=== PATIENT | male | born 1995 | race Caucasian/White ===

== ENCOUNTER 2016-06-14 14:41 | Emergency (ER) | payer OTHER, SELFPAY ==
[2016-06-14 15:15] LABS: MEAN CORPUSCULAR HEMOGLOBIN 28.8 pg (27.0-33.0); MEAN CORPUSCULAR VOLUME 87.2 fl (80.0-96.0); RED CELL DISTRIBUTION WIDTH 12.8 % (11.5-14.5); WHITE BLOOD COUNT 7.2 K/mm3 (4.0-10.0)
[2016-06-14 15:56] LABS: ALBUMIN/GLOBULIN RATIO 1.14 (1.00-1.93); ALKALINE PHOSPHATASE 115 U/L (45-117); ALT/SGPT 43 U/L (12-78); ANION GAP 7 MEQ/L (8-16); AST/SGOT 32 U/L (15-37); BILIRUBIN,DIRECT < 0.1 MG/DL (0.0-0.2); BILIRUBIN,TOTAL 0.4 MG/DL (0.2-1.0); BLOOD UREA NITROGEN 12 MG/DL (7-18); CALCIUM LEVEL 8.6 MG/DL (8.5-10.1); CARBON DIOXIDE LEVEL 31 MEQ/L (21-32); CHLORIDE LEVEL 104 MEQ/L (98-107); GLUCOSE, FASTING 96 MG/DL (70-105); POTASSIUM SERUM 3.8 MEQ/L (3.5-5.1); SODIUM LEVEL 142 MEQ/L (136-145); TOTAL PROTEIN 7.5 GM/DL (6.4-8.2)
[2016-06-14 16:10] LABS: AMPHETAMINES LEVEL URINE NEGATIVE (NEGATIVE); BENZODIAZEPINES URINE NEGATIVE (NEGATIVE); COCAINE METABOLITE URINE NEGATIVE (NEGATIVE); CONTROL LINE INT CTR LINE PRESENT; METHADONE URINE NEGATIVE (NEGATIVE); OPIATES URINE NEGATIVE (NEGATIVE); TRICYCLIC ANTIDEPRESS URINE NEGATIVE (NEGATIVE)
--- NOTE | 2016-06-15 11:20 | EDDOCDS ---
Physician Documentation [facility] Name: Benjamin Denson Age: 20 yrs Sex: Male : 1995 Arrival Date: 06/14/2016 Time: 14:41 Bed OBSERVATION Private MD: NO PRIMARY PHYSICIAN, . Disposition: 06/15/16 04:15 Transfer ordered to [facility]. Diagnosis are Major depressive disorder, recurrent, Suicidal ideations. - Reason for transfer: Higher level of care. - Accepting physician is Dr Moody. - Condition is Stable. - Problem is an ongoing problem. - Symptoms are unchanged. Historical: - Allergies: no known allergies; - Home Meds: 1. none - PMHx: Anxiety; Bipolar disorder; Depression; MPD; - PSHx: Adenoidectomy; - Social history: Smoking status: Patient uses tobacco products, heavy tobacco smoker. No barriers to communication noted, The patient speaks fluent Upper Sor[place], Speaks appropriately for age. - Family history: Not pertinent. - : The pt / caregiver states he / she is not on anticoagulants. Home medication list is obtained from the patient. - Exposure Risk Screening:: None identified. Vital Signs: 06/14 14:43 BP 148 / 76; Pulse 89; Resp 18 S; Temp 96.4; Pulse Ox 99% on R/A; Weight 74.84 kg / dd6 164.99 lbs (R); 19:26 BP 132 / 60; Pulse 71; Resp 16; Temp 97.7(TE); Pulse Ox 96% ; Pain 0/10; mas 06/15 05:00 BP 109 / 53; Pulse 64; Resp 16; Temp 98.6(TE); Pulse Ox 96% on R/A; Pain 0/10; slm 11:19 BP 140 / 79; Pulse 62; Resp 18; Temp 99.2(T); Pulse Ox 100% on R/A; mk4 MDM: 06/14 14:49 Consult PFS/PSA/Combination Saw Operator ordered. br1 14:49 Consult PFS/PSA/Combination Saw Operator: Patient's case requires discussion with on-call br1 Psychiatrist ordered. 14:49 PSA/PFS to call Nursing Stone Polisher Hand, to enter patient data on [place] Safe Act if patient br1 involuntarily admitted or transferred for SI or HI ordered. 14:49 Confirm accurate psychiatric medication list and times of last dosage ordered. br1 14:49 Detain Pt Until Medically/PFS Cleared ordered. br1 14:50 Acetaminophen Level Ordered. EDMS 14:50 Basic Metabolic Profile Ordered. EDMS 14:50 Complete Blood Count Ordered. EDMS 14:50 Drug Eval Toxicology ED Only Ordered. EDMS 14:50 Ethyl Alcohol (ethanol) Ordered. EDMS 14:50 Liver Profile Ordered. EDMS 14:50 Salicylate Level Ordered. EDMS 14:50 Thyroid Stimulating Hormone Ordered. EDMS 15:11 Consult PFS/PSA/Combination Saw Operator complete. mk4 15:11 Consult PFS/PSA/Combination Saw Operator: Patient's case requires discussion with on-call mk4 Psychiatrist complete. 15:11 PSA/PFS to call Nursing Stone Polisher Hand, to enter patient data on [place] Safe Act if patient mk4 involuntarily admitted or transferred for SI or HI complete. 16:12 Acetaminophen Level Reviewed. br1 16:12 Basic Metabolic Profile Reviewed. br1 16:12 Salicylate Level Reviewed. br1 16:12 Complete Blood Count Reviewed. br1 16:12 Ethyl Alcohol (ethanol) Reviewed. br1 16:12 Liver Profile Reviewed. br1 16:12 Thyroid Stimulating Hormone Reviewed. br1 16:12 Drug Eval Toxicology ED Only Reviewed. br1 16:13 Consult PFS/PSA/Socail Worker: Cleared medically for eval ordered. br1 16:15 Consult PFS/PSA/Socail Worker: Cleared medically for eval complete. ml4 16:27 REGULAR DIET PLASTIC WEISS+DIET ordered. EDMS 17:13 [facility] Payment Agreement was scanned into [employer] and attached to record. [id number] 17:13 Financial registration complete. dm19 06/15 03:56 [facility] Legal paperwork was scanned into [employer] and attached to record. cl 04:24 REGULAR DIET PLASTIC WEISS+DIET ordered. EDMS 11:07 REGULAR DIET PLASTIC WEISS+DIET ordered. EDMS Signatures: Dispatcher [employer] EDMS Eric Albright, PSA PSA cl Chris Benitez RN RN mlb1 Juliane Orantes, PSA PSA ml4 Shad Valenzuela MD MD br1 Nate Kimble DO DO [id number] Samara Marquez RN RN mk4 Ariane Marion dm19 The chart was reviewed and I authenticate all verbal orders and agree with the evaluation and treatment provided.Attachments: 06/14 17:13 [facility] Payment Agreement [email or web address] MTDD
--- NOTE | 2016-06-15 11:20 | EDDOCDS ---
Nurse's Notes [facility] Name: Benjamin Denson Age: 20 yrs Sex: Male : 1995 Arrival Date: 06/14/2016 Time: 14:41 Bed OBSERVATION Private MD: NO PRIMARY PHYSICIAN, . Diagnosis: Major depressive disorder, recurrent;Suicidal ideations Presentation: 06/14 14:44 Presenting complaint: Patient states: Depression with suicidal thoughts. Mental Health mlb1 Triage Level: Level 2: The patient displays active suicidal ideations. Adult Sepsis Screening: The patient does not have new or worsening altered mentation. Patient's respiratory rate is less than 22. Systolic blood pressure is greater than 100. Patient has a qSOFA score of 0- Negative Sepsis Screen. Mental Health Triage Level: Level 2: The patient displays active suicidal ideations. Suicide/Homicide risk assessment- The patient admits to and/or has been reported to be having suicidal ideations. The patient reports that he/she has not been admitted to an inpatient mental health facility in the last 30 days. The patient reports that he/she has a recent or current history of substance abuse. The patient reports that he/she has a prior history of suicide attempt and/or organized plan. The patient reports that he/she has not experienced a significant life altering event in the last 30 days. The patient reports that he/she lacks adequate social support. The patient reports he/she has no significant chronic medical condition(s). Status: Patient is not a service desk lead or dependent. Transition of care: patient was not received from another setting of care. Red Flag criteria, patient assessed and taken directly to a bed. 14:44 Acuity: TEDDY Level 3 mlb1 14:44 Method Of Arrival: Walkin/Carried/Asstd mlb1 Triage Assessment: 14:45 General: Appears in no apparent distress, Behavior is cooperative, flat, quiet. Pain: mlb1 Denies pain. Pt Declines HIV testing. Historical: - Allergies: no known allergies; - Home Meds: 1. none - PMHx: Anxiety; Bipolar disorder; Depression; MPD; - PSHx: Adenoidectomy; - Social history: Smoking status: Patient uses tobacco products, heavy tobacco smoker. No barriers to communication noted, The patient speaks fluent Bengali, Speaks appropriately for age. - Family history: Not pertinent. - : The pt / caregiver states he / she is not on anticoagulants. Home medication list is obtained from the patient. - Exposure Risk Screening:: None identified. Screenin:13 Screening information is obtained from the patient. Fall risk: No risks identified. mk4 Assistance ADL's: requires no assistance with activities of daily living. Abuse/DV Screen: The patient / caregiver reports he/she is: not in a situation that causes fear, pain or injury. Nutritional screening: No deficits noted. Advance Directives: Currently, there is no health care proxy. There is no active DNR order. There is no living will. There is no Power of Power Plant Supervisor. Advance directive information has not previously been placed in an [facility] medical record. Further advance directive information is declined. home support is adequate. Assessment: 15:13 General: Appears in no apparent distress, comfortable, Behavior is flat, quiet. Pain: mk4 Denies pain. Neurological: Level of Consciousness is awake, alert. Respiratory: Airway is patent Respiratory effort is even, unlabored, Respiratory pattern is regular. Derm: Skin is intact, is healthy with good turgor, Skin is pink, warm & dry. 16:20 General: Appears in no apparent distress, comfortable. mk4 17:15 Reassessment: Patient appears in no apparent distress at this time. General: Appears in mk4 no apparent distress. Neurological: Level of Consciousness is awake, alert. 18:17 Reassessment: Patient appears in no apparent distress at this time. Patient denies pain mk4 at this time. General: Appears in no apparent distress, comfortable, Behavior is cooperative, flat, quiet, dinner tray given . 19:12 General: Appears in no apparent distress, comfortable, Behavior is appropriate for age, slm cooperative, quiet. General: pt resting on stretcher watching a movie security observing . Respiratory: Airway is patent Respiratory effort is even, unlabored. 20:16 General: Appears in no apparent distress, comfortable, Behavior is appropriate for age, slm cooperative. General: pt resting on stretcher watching a movie denies needs security observing . Respiratory: Airway is patent Respiratory effort is even, unlabored, Respiratory pattern is regular. Derm: Skin is pink, warm & dry. 21:12 General: Appears in no apparent distress, comfortable, Behavior is cooperative. slm General: resting on stretcher security observing . Respiratory: Airway is patent Respiratory pattern is regular. 22:20 General: Appears in no apparent distress, comfortable, to be sleeping. Behavior is slm quiet. General: resting on stretcher security observing . Respiratory: Airway is patent Respiratory effort is even, unlabored. Derm: Skin is pink, warm & dry. 23:01 General: Appears in no apparent distress, comfortable, to be sleeping. Behavior is slm quiet. General: security observing safety maintained . Respiratory: Airway is patent Respiratory effort is even, unlabored. Derm: Skin is pink, warm & dry. 06/15 00:10 General: Appears in no apparent distress, comfortable, to be sleeping. Behavior is slm quiet. General: security observing . Respiratory: Airway is patent Respiratory effort is even, unlabored. Derm: Skin is pink, warm & dry. 00:55 Reassessment: Patient appears in no apparent distress at this time. General: Appears in jp6 no apparent distress, comfortable. Respiratory: Airway is patent Respiratory effort is even, unlabored, Respiratory pattern is regular, symmetrical. :. Derm: Skin is pink, warm & dry. 01:34 General: Appears in no apparent distress, comfortable, Behavior is cooperative, quiet. slm General: pt resting on stretcher appears asleep security observing . Respiratory: No deficits noted. 02:16 General: Appears in no apparent distress, comfortable, to be sleeping. Behavior is slm quiet. General: security observing . Respiratory: Airway is patent Respiratory effort is even, unlabored, Respiratory pattern is regular. 02:57 General: Appears in no apparent distress, Pt asleep at rounds, no apparent distress, sls1 security observing, will continue to monitor.. Respiratory: Airway is patent Respiratory effort is even, unlabored, Respiratory pattern is regular, symmetrical. 03:43 General: Appears in no apparent distress, comfortable, to be sleeping. Behavior is slm quiet. General: security observing . Respiratory: Airway is patent Respiratory effort is even, unlabored. Derm: Skin is pink, warm & dry. 04:30 General: Appears in no apparent distress, comfortable, Behavior is appropriate for age, slm cooperative. General: pt resting on stretcher denies needs security observing . Pain: Denies pain. Neurological: Level of Consciousness is awake, alert, obeys commands. Respiratory: Airway is patent Respiratory effort is even, unlabored. Derm: Skin is pink, warm & dry. 05:06 General: Appears in no apparent distress, comfortable, to be sleeping. Behavior is slm cooperative, quiet. General: pt resting on stretcher security observing . Respiratory: Airway is patent Respiratory effort is even, unlabored. Derm: Skin is pink, warm & dry. 06:14 General: Appears in no apparent distress, comfortable, to be sleeping. Behavior is slm cooperative, quiet. General: resting on stretcher asleep security observing . Respiratory: Airway is patent Respiratory effort is even, unlabored. 06:40 Reassessment: Patient appears in no apparent distress at this time. General: Appears in jp6 no apparent distress, comfortable. Respiratory: Airway is patent Respiratory effort is even, unlabored, Respiratory pattern is regular, symmetrical. Derm: Skin is intact, Skin is pink, warm & dry. 07:08 General: Appears in no apparent distress, comfortable, Behavior is cooperative, slm pleasant. General: pt eating breakfast security observing . Respiratory: Airway is patent Respiratory effort is even, unlabored. 08:43 General: Appears in no apparent distress, comfortable, Behavior is cooperative, Denies mk4 feeling ill. 09:26 General: Appears in no apparent distress, comfortable. mk4 10:19 General: Appears in no apparent distress, comfortable, Behavior is cooperative, mk4 awaiting transfer to [place], denies any needs. 10:47 General: Appears in no apparent distress, comfortable, Behavior is cooperative, mk4 awaiting transfer to [place] denies needs. 11:18 General: Appears in no apparent distress, pt cooperative transferred to [place]. mk4 Mental Health Eval: 06/14 17:44 Mental health consult is initiated at 16:30. Status: The patient is not a service desk lead or dependent. [facility] Behavioral Health: The patient is not an established patient of [facility] Behavioral Health. Referral Information: Evaluation referral is generated by the patient himself / herself. The patient was referred for evaluation because Pt presented to ED by himself, homeless, suicidal with a plan to jump off [address] bridge, "because it is the highest one," or "slice his wrist," has been depressed and suicidal since he left [facility] in January 2016 after pt OD on trazodone and Zoloft (120 pills total), non compliant with treatment and medication, "don't work, make me feel like I am losing my mind," per pt. pt reports stressors are being homeless, family, father awhile back. Pt also reports not sleeping well for over 2 weeks, decompensating, disheveled, helpless and hopeless about his situation. 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 Subjective: The patients chief complaint is Pt reports depressed and +Suicidal with plan to jump off bridge or slice wrist, non-compliant with medications or treatment, homeless, family issues, . Delusions are denied. Patient's mood is anxious, depressed, hopeless, Hallucinations are denied. Mental Health history: anxiety, Bipolar Disorder, depression, sleep disturbance, suicide attempt by Pt reports 2 times tried to hang self, micah louise, OD on a combination of trazodone and Zoloft, 120 total on Jan 26 2016 Mental Health Admissions: [facility] 12/26/15, because pt requested a different hospital due to employment Current Outpatient Mental Health Services: None. Current living environment is homeless. Patient presents to Emergency Department with the following symptoms within the past 2 weeks: agitation, anxiety, denial, depressed mood, drug abuse, excessive guilt, feelings of helplessness/hopelessness, non-compliance, poor concentration, poor impulse control, relational problem, sleep disturbance - insomnia, suicidal ideation with plan for cutting. jumping off a structure. Substance abuse: Patient uses marijuana. Mental status exam: Patients appearance is disheveled Patient's behavior is cooperative, Speech is normal. Affect is broad. Mood is depressed. dysphoric. Hallucinations are denied. Appetite is normal. Memory is fair. Energy level is tires easily. Content of thought is normal. Thought process is intact. Cognitive level is oriented to person, place, time and situation Patient's insight is poor. Judgement is poor. Rapport with interviewer is good. Suicidal Ideation present with a plan to kill self by cutting. jumping off a structure. Homicidal ideation is not present. Disposition: Medically cleared for disposition by Shad Valenzuela MD Psychiatric Consult is performed by phone with Dr Roosevelt Del Rio The patient is to be transferred to [facility] unit is full at this time and pt is requesting a transfer due to being a recently x employed from [facility] [facility]. [facility] Admission Criteria: The patient is experiencing suicidal ideation. The patient requires continuous observation and/or control to protect self, others or property. The patient's care requires a multi-modal treatment plan under close supervision and coordination due to the complexity and severity of the patient's symptoms. The patient requires administration and monitoring of psychoactive medications by skilled medical providers due to the side effects of the psychoactive medications or significant dosage adjustments. Legal Status: Patient's legal status will be [facility] admission: 37. CT Safe Act: [place] Safe Act is applicable to this patient. The patient poses a risk to self or other and the Nursing Assembler Motor Vehicle has been notified. He/She will enter the patient's data. DSM-V Differential Diagnosis: Bipolar II Disorder (F31.81) Current or most recent episode depressed, severe. Insurance Pre-Certification: Not Required, Pt states he has no insurance at this time. Pt states preferred pharmacy is: [facility]. 23:12 Narrative: chart faxed to [facility] for review.... cl 06/15 04:40 Family Notification: Notification to family of patient status is not currently needed cl or appropriate. Awaiting: arrival of EMS for transfer. Vital Signs: 06/14 14:43 BP 148 / 76; Pulse 89; Resp 18 S; Temp 96.4; Pulse Ox 99% on R/A; Weight 74.84 kg (R); dd6 19:26 BP 132 / 60; Pulse 71; Resp 16; Temp 97.7(TE); Pulse Ox 96% ; Pain 0/10; mas 06/15 05:00 BP 109 / 53; Pulse 64; Resp 16; Temp 98.6(TE); Pulse Ox 96% on R/A; Pain 0/10; slm 11:19 BP 140 / 79; Pulse 62; Resp 18; Temp 99.2(T); Pulse Ox 100% on R/A; mk4 Vitals: 06/14 14:43 Log In Time: June 14, 2016 at 14:41. dd6 14:44 RN notified that patient meets Red Flag criteria. dd6 ED Course: 14:42 Patient visited by Ulises Mari PCA. dd6 14:42 Patient moved to Waiting dd6 14:43 NO PRIMARY PHYSICIAN, . is Private Physician. dd6 14:44 Patient moved to Pre RCE dd6 14:45 Triage Initiated mlb1 14:46 Patient visited by Chris Benitez RN. mlb1 14:46 Patient moved to [facility] mlb1 14:49 Shad Valenzuela MD is Attending Physician. br1 14:57 Patient visited by Lito Jain. gr2 15:11 Patient visited by Shad Valenzuela MD. br1 15:11 Acetaminophen Level Sent. mk4 15:11 Basic Metabolic Profile Sent. mk4 15:11 Complete Blood Count Sent. mk4 15:11 Ethyl Alcohol (ethanol) Sent. mk4 15:11 Liver Profile Sent. mk4 15:11 Salicylate Level Sent. mk4 15:11 Thyroid Stimulating Hormone Sent. mk4 15:13 Patient visited by Lito Jain. gr2 15:13 The patient / caregiver is instructed regarding the plan of care and ED course. mk4 15:13 No IV's were initiated during this patient's visit. No procedures done that require mk4 assistance. 15:30 Patient visited by Lito Jain. gr2 15:45 Patient visited by Lito Jain. gr2 16:08 Patient visited by Wojciech Ewing PCA. jrd 16:19 Patient visited by Wojciech Ewing PCA. jrd 16:31 Patient visited by Wojciech Ewing PCA. jrd 16:43 Patient visited by Lito Jain. gr2 17:09 Patient visited by Lito Jain. gr2 17:13 [facility] Payment Agreement was scanned into [employer] and attached to record. dm19 17:25 Patient visited by Lito Jain. gr2 17:52 Patient visited by Wojciech Ewing PCA. jrd 18:01 Patient visited by Wojciech Ewing PCA. jrd 18:16 Patient visited by Lito Jain. gr2 18:31 Patient visited by Lito Jain. gr2 18:45 Patient visited by Jeremy Woo. mas 18:46 Patient moved to OBSERVATION br1 19:00 Patient visited by Jeremy Woo. mas 19:03 Abril So LPN is Primary Nurse. slm 19:13 Patient visited by Abril So LPN. slm 19:15 Patient visited by Jeremy Woo. mas 19:31 Patient visited by Jeremy Woo. mas 19:45 Patient visited by Jeremy Woo. mas 20:00 Patient visited by Jeremy Woo. mas 20:15 Patient visited by Jeremy Woo. mas 20:17 Patient visited by Abril So LPN. slm 20:30 Patient visited by Jeremy Woo. mas 20:45 Patient visited by Jeremy Woo. mas 21:00 Patient visited by Jeremy Woo. mas 21:13 Patient visited by Abril So LPN. slm 21:15 Patient visited by Jeremy Woo. mas 21:31 Patient visited by Jeremy Woo. mas 21:48 Patient visited by Jeremy Woo. mas 22:00 Patient visited by Jeremy Woo. mas 22:15 Patient visited by Jeremy Woo. mas 22:30 Patient visited by Jeremy Woo. mas 22:42 Patient visited by Abril So LPN. slm 22:45 Patient visited by Jeremy Woo. mas 23:01 Patient visited by Jeremy Woo. mas 23:02 Patient visited by Abril So LPN. slm 23:07 Attending Physician role handed off by Shad Valenzuela MD cs11 23:07 Nate Kimble DO is Attending Physician. cs11 23:15 Patient visited by Jeremy Woo. mas 23:30 Patient visited by Jeremy Woo. mas 06/15 00:05 Patient visited by Jeremy Woo. mas 00:26 Patient visited by Jeremy Woo. mas 00:26 Patient visited by Abril So LPN. slm 00:30 Patient visited by Jeremy Woo. mas 00:45 Patient visited by Jeremy Woo. mas 01:01 Patient visited by Jeremy Woo. mas 01:16 Patient visited by Jeremy Woo. mas 01:30 Patient visited by Jeremy Woo. mas 01:34 Patient visited by Abril So LPN. slm 01:36 Patient visited by Abril So LPN. slm 01:45 Patient visited by Jeremy Woo. mas 02:00 Patient visited by Jeremy Woo. mas 02:15 Patient visited by Jeremy Woo. mas 02:16 Patient visited by Abril So LPN. slm 02:30 Patient visited by Jeremy Woo. mas 02:45 Patient visited by Jeremy Woo. mas 02:58 Patient visited by Jillian Joel RN. sls1 03:00 Patient visited by Jeremy Woo. mas 03:15 Patient visited by Jeremy Woo. mas 03:44 Patient visited by Abril So LPN. slm 03:56 [facility] Legal paperwork was scanned into [employer] and attached to record. cl 04:04 Patient visited by Jeremy Woo. mas 04:15 Patient visited by Abril So LPN. slm 04:30 Patient visited by Abril So LPN. slm 04:44 Patient visited by Jeremy Woo. mas 05:00 Patient visited by Jeremy Woo. mas 05:00 Patient visited by Abril So LPN. slm 05:07 Patient visited by Abril So LPN. slm 05:15 Patient visited by Jeremy Woo. mas 05:39 Patient visited by Jeremy Woo. mas 05:45 Patient visited by Jeremy Woo. mas 06:00 Patient visited by Jeremy Woo. mas 06:15 Patient visited by Jeremy Woo. mas 06:15 Patient visited by Abril So LPN. slm 06:30 Patient visited by Jeremy Woo. mas 06:45 Patient visited by Jeremy Woo. mas 07:05 Patient visited by Jeremy Woo. mas 07:09 Patient visited by Abril So LPN. slm 07:09 Primary Nurse role handed off by Abril So LPN mcp 07:22 Patient visited by Arnulfo Perez Security Aide. pjf 07:36 Patient visited by Arnulfo Perez Security Aide. pjf 07:44 Patient visited by Arnulfo Perez Security Aide. pjf 08:06 Patient visited by Arnulfo Perez Security Aide. pjf 08:29 Patient visited by Arnulfo Perez Security Aide. pjf 08:41 Patient visited by Arnulfo Perez Security Aide. pjf 09:00 Psych Safety Check: Location: Psych Room. Visual Assessment: Cooperative. pjf 09:15 Patient visited by Arnulfo Perez Security Aide. pjf 09:39 Patient visited by Arnulfo Perez Security Aide. pjf 10:01 Patient visited by Arnulfo Perez Security Aide. pjf 10:22 Patient visited by Arnulfo Peerz Security Aide. pjf 10:35 Patient visited by rAnulfo Perez Security Aide. pjf 10:54 Patient visited by Arnulfo Perez Security Aide. pjf 11:05 Patient visited by Arnulfo Perez Security Aide. pjf 11:17 Patient visited by Arnulfo Perez Security Aide. pjf Attachments: 06/15 03:56 MHE Legal paperwork cl Order Results: Lab Order: Acetaminophen Level; SPEC'M 06/14/16 15:08 Test: ACETAMINOPHEN LEVEL; Value: < 2.0; Range: 10.0-30.0; Abnormal: Below low normal; Units: UG/ML; Status: F Lab Order: Basic Metabolic Profile; SPEC'M 06/14/16 15:08 Test: GLUCOSE, FASTING; Value: 96; Range: 70-105; Units: MG/DL; Status: F Test: BLOOD UREA NITROGEN; Value: 12; Range: 7-18; Units: MG/DL; Status: F Test: CREATININE FOR GFR; Value: 0.90; Range: 0.70-1.30; Units: MG/DL; Status: F Test: SODIUM LEVEL; Value: 142; Range: 136-145; Units: MEQ/L; Status: F Test: POTASSIUM SERUM; Value: 3.8; Range: 3.5-5.1; Units: MEQ/L; Status: F Test: CHLORIDE LEVEL; Value: 104; Range: 98-107; Units: MEQ/L; Status: F Test: CARBON DIOXIDE LEVEL; Value: 31; Range: 21-32; Units: MEQ/L; Status: F Test: ANION GAP; Value: 7; Range: 8-16; Abnormal: Below low normal; Units: MEQ/L; Status: F Test: CALCIUM LEVEL; Value: 8.6; Range: 8.5-10.1; Units: MG/DL; Status: F Lab Order: Complete Blood Count; SPEC'M 06/14/16 15:08 Test: WHITE BLOOD COUNT; Value: 7.2; Range: 4.0-10.0; Units: K/mm3; Status: F Test: RED BLOOD COUNT; Value: 4.99; Range: 4.30-6.10; Units: M/mm3; Status: F Test: HEMOGLOBIN; Value: 14.4; Range: 14.0-18.0; Units: g/dl; Status: F Test: HEMATOCRIT; Value: 43.5; Range: 42.0-52.0; Units: %; Status: F Test: MEAN CORPUSCULAR VOLUME; Value: 87.2; Range: 80.0-96.0; Units: fl; Status: F Test: MEAN CORPUSCULAR HEMOGLOBIN; Value: 28.8; Range: 27.0-33.0; Units: pg; Status: F Test: MEAN CORPUSCULAR HGB CONC; Value: 33.0; Range: 32.0-36.5; Units: g/dl; Status: F Test: RED CELL DISTRIBUTION WIDTH; Value: 12.8; Range: 11.5-14.5; Units: %; Status: F Test: PLATELET COUNT, AUTOMATED; Value: 293; Range: 150-450; Units: k/mm3; Status: F Lab Order: Drug Eval Toxicology ED Only; SPEC'M 06/14/16 15:02 Test: AMPHETAMINES LEVEL URINE; Value: NEGATIVE; Range: NEGATIVE; Status: F Test: BARBITURATES URINE; Value: NEGATIVE; Range: NEGATIVE; Status: F Test: BENZODIAZEPINES URINE; Value: NEGATIVE; Range: NEGATIVE; Status: F Test: CANNABINOIDS URINE; Value: POSITIVE; Range: NEGATIVE; Abnormal: Above high normal; Status: F Test: COCAINE METABOLITE URINE; Value: NEGATIVE; Range: NEGATIVE; Status: F Test: METHADONE URINE; Value: NEGATIVE; Range: NEGATIVE; Status: F Test: OPIATES URINE; Value: NEGATIVE; Range: NEGATIVE; Status: F Test: TRICYCLIC ANTIDEPRESS URINE; Value: NEGATIVE; Range: NEGATIVE; Status: F Test Note: ; FALSE POSITIVE RESULTS CAN BE CAUSED BY THE USE OF PANTOPRAZOLE (PROTONIX). Lab Order: Ethyl Alcohol (ethanol); SPEC' 06/14/16 15:08 Test: ETHYL ALCOHOL (ETHANOL); Value: < 0.003; Range: 0.000-0.010; Units: %; Status: F Lab Order: Liver Profile; SPEC' 06/14/16 15:08 Test: AST/SGOT; Value: 32; Range: 15-37; Units: U/L; Status: F Test: ALT/SGPT; Value: 43; Range: 12-78; Units: U/L; Status: F Test: ALKALINE PHOSPHATASE; Value: 115; Range: 45-117; Units: U/L; Status: F Test: BILIRUBIN,TOTAL; Value: 0.4; Range: 0.2-1.0; Units: MG/DL; Status: F Test: BILIRUBIN,DIRECT; Value: < 0.1; Range: 0.0-0.2; Units: MG/DL; Status: F Test: TOTAL PROTEIN; Value: 7.5; Range: 6.4-8.2; Units: GM/DL; Status: F Test: ALBUMIN; Value: 4.0; Range: 3.2-5.2; Units: GM/DL; Status: F Test: ALBUMIN/GLOBULIN RATIO; Value: 1.14; Range: 1.00-1.93; Status: F Lab Order: Salicylate Level; SPEC' 06/14/16 15:08 Test: SALICYLATE LEVEL; Value: < 1.7; Range: 5.0-30.0; Abnormal: Below low normal; Units: MG/DL; Status: F Lab Order: Thyroid Stimulating Hormone; SPEC' 06/14/16 15:08 Test: THYROID STIMULATING HORMONE; Value: 2.600; Range: 0.463-3.98; Units: uIU/ML; Status: F Outcome: 02:17 No special radiology studies were completed. Property removed, inventory done, secured slm in belongings bag- placed in locked locker. 04:15 ER care complete, transfer ordered by Provider. cs11 10:47 Discharge Assessment: Patient awake, alert and oriented x 3. No cognitive and/or mk4 functional deficits noted. Patient verbalized understanding of disposition instructions. Patient awake and alert. patient administered narcotics - no. The following High Risk Discharge criteria are identified: None. Transferred to [facility]. by EMS ground [facility]. Condition: stable. 11:17 Transferred by EMS ground report to accompanying personnel john cespedes and freedom gruber . mk4 11:19 Patient left the ED. mk4 Signatures: Cami Hernandez, RN RN mcp Jose Ramon, Eric, PSA PSA cl Jeremy Sinha, PSA PSA cs Arnulfo Perez, Security Aide Chris Gavin RN RN mlb1 Shad Valenzuela MD MD br1 Ulises Mari, SOCIAL HUMAN SERVICES ASSISTANTS SOCIAL HUMAN SERVICES ASSISTANTS dd6 Jeremy Woo Shannon, RN RN sls1 Nate Kimble, DO cs11 Lito Jain gr2 Abril So,ENFORCEMENT OFFICER ENFORCEMENT OFFICER slm Samara Marquez, RN RN mk4 Wojciech Ewing, SOCIAL HUMAN SERVICES ASSISTANTS SOC[employer] HUMAN SERVICES ASSISTANTS d Nita TomRN RN jp6 Ariane Marion dm19 Corrections: (The following items were deleted from the chart) 01:36 01:34 General: pt resting on stretcher watching a movie security observing . slm slm MTDD
--- NOTE | 2016-06-17 12:20 | EDDOCDS ---
Physician Documentation [facility] Name: Benjamin Denson Age: 20 yrs Sex: Male : 1995 Arrival Date: 06/14/2016 Time: 14:41 Bed OBSERVATION Private MD: NO PRIMARY PHYSICIAN, . Disposition: 06/15/16 04:15 Transfer ordered to [facility]. Diagnosis are Major depressive disorder, recurrent, Suicidal ideations. - Reason for transfer: Higher level of care. - Accepting physician is Dr Moody. - Condition is Stable. - Problem is an ongoing problem. - Symptoms are unchanged. Historical: - Allergies: no known allergies; - Home Meds: 1. none - PMHx: Anxiety; Bipolar disorder; Depression; MPD; - PSHx: Adenoidectomy; - Social history: Smoking status: Patient uses tobacco products, heavy tobacco smoker. No barriers to communication noted, The patient speaks fluent Croatian, Speaks appropriately for age. - Family history: Not pertinent. - : The pt / caregiver states he / she is not on anticoagulants. Home medication list is obtained from the patient. - Exposure Risk Screening:: None identified. Vital Signs: 06/14 14:43 BP 148 / 76; Pulse 89; Resp 18 S; Temp 96.4; Pulse Ox 99% on R/A; Weight 74.84 kg / dd6 164.99 lbs (R); 19:26 BP 132 / 60; Pulse 71; Resp 16; Temp 97.7(TE); Pulse Ox 96% ; Pain 0/10; mas 06/15 05:00 BP 109 / 53; Pulse 64; Resp 16; Temp 98.6(TE); Pulse Ox 96% on R/A; Pain 0/10; slm 11:19 BP 140 / 79; Pulse 62; Resp 18; Temp 99.2(T); Pulse Ox 100% on R/A; mk4 MDM: 06/14 14:49 Consult PFS/PSA/Janitorial Manager ordered. br1 14:49 Consult PFS/PSA/Janitorial Manager: Patient's case requires discussion with on-call br1 Psychiatrist ordered. 14:49 PSA/PFS to call Nursing Credit Specialist, to enter patient data on [place] Safe Act if patient br1 involuntarily admitted or transferred for SI or HI ordered. 14:49 Confirm accurate psychiatric medication list and times of last dosage ordered. br1 14:49 Detain Pt Until Medically/PFS Cleared ordered. br1 14:50 Acetaminophen Level Ordered. EDMS 14:50 Basic Metabolic Profile Ordered. EDMS 14:50 Complete Blood Count Ordered. EDMS 14:50 Drug Eval Toxicology ED Only Ordered. EDMS 14:50 Ethyl Alcohol (ethanol) Ordered. EDMS 14:50 Liver Profile Ordered. EDMS 14:50 Salicylate Level Ordered. EDMS 14:50 Thyroid Stimulating Hormone Ordered. EDMS 15:11 Consult PFS/PSA/Janitorial Manager complete. mk4 15:11 Consult PFS/PSA/Janitorial Manager: Patient's case requires discussion with on-call mk4 Psychiatrist complete. 15:11 PSA/PFS to call Nursing Credit Specialist, to enter patient data on [place] Safe Act if patient mk4 involuntarily admitted or transferred for SI or HI complete. 16:12 Acetaminophen Level Reviewed. br1 16:12 Basic Metabolic Profile Reviewed. br1 16:12 Salicylate Level Reviewed. br1 16:12 Complete Blood Count Reviewed. br1 16:12 Ethyl Alcohol (ethanol) Reviewed. br1 16:12 Liver Profile Reviewed. br1 16:12 Thyroid Stimulating Hormone Reviewed. br1 16:12 Drug Eval Toxicology ED Only Reviewed. br1 16:13 Consult PFS/PSA/Socail Worker: Cleared medically for eval ordered. br1 16:15 Consult PFS/PSA/Socail Worker: Cleared medically for eval complete. ml4 16:27 REGULAR DIET PLASTIC WEISS+DIET ordered. EDMS 17:13 [facility] Payment Agreement was scanned into [employer] and attached to record. [id number] 17:13 Financial registration complete. dm19 06/15 03:56 [facility] Legal paperwork was scanned into [employer] and attached to record. cl 04:24 REGULAR DIET PLASTIC WEISS+DIET ordered. EDMS 11:07 REGULAR DIET PLASTIC WEISS+DIET ordered. EDMS 06/16 08:17 T-Sheet-- Draft Copy was scanned into [employer] and attached to record. gb Signatures: Dispatcher [employer] EDMS Eric Albright, PSA PSA cl Rochelle Gallardo, Reg Reg gb Chris Benitez RN RN mlb1 Juliane Orantes, PSA PSA ml4 Shad Valenzuela MD MD br1 Nate Kimble DO DO cs11 Samara Marquez RN RN mk4 Ariane Marion dm19 The chart was reviewed and I authenticate all verbal orders and agree with the evaluation and treatment provided.Attachments: 06/14 17:13 [facility] Payment Agreement [email or web address] 06/16 08:17 T-Sheet-- Draft Copy gb Chart Complete MTDD
--- NOTE | 2016-06-17 12:21 | EDDOCDS ---
Physician Documentation [facility] Name: Benjamin Denson Age: 20 yrs Sex: Male : 1995 Arrival Date: 06/14/2016 Time: 14:41 Bed OBSERVATION Private MD: NO PRIMARY PHYSICIAN, . Disposition: 06/15/16 04:15 Transfer ordered to [facility]. Diagnosis are Major depressive disorder, recurrent, Suicidal ideations. - Reason for transfer: Higher level of care. - Accepting physician is Dr Moody. - Condition is Stable. - Problem is an ongoing problem. - Symptoms are unchanged. Historical: - Allergies: no known allergies; - Home Meds: 1. none - PMHx: Anxiety; Bipolar disorder; Depression; MPD; - PSHx: Adenoidectomy; - Social history: Smoking status: Patient uses tobacco products, heavy tobacco smoker. No barriers to communication noted, The patient speaks fluent Armenian, Speaks appropriately for age. - Family history: Not pertinent. - : The pt / caregiver states he / she is not on anticoagulants. Home medication list is obtained from the patient. - Exposure Risk Screening:: None identified. Vital Signs: 06/14 14:43 BP 148 / 76; Pulse 89; Resp 18 S; Temp 96.4; Pulse Ox 99% on R/A; Weight 74.84 kg / dd6 164.99 lbs (R); 19:26 BP 132 / 60; Pulse 71; Resp 16; Temp 97.7(TE); Pulse Ox 96% ; Pain 0/10; mas 06/15 05:00 BP 109 / 53; Pulse 64; Resp 16; Temp 98.6(TE); Pulse Ox 96% on R/A; Pain 0/10; slm 11:19 BP 140 / 79; Pulse 62; Resp 18; Temp 99.2(T); Pulse Ox 100% on R/A; mk4 MDM: 06/14 14:49 Consult PFS/PSA/Drug Clerk ordered. br1 14:49 Consult PFS/PSA/Drug Clerk: Patient's case requires discussion with on-call br1 Psychiatrist ordered. 14:49 PSA/PFS to call Nursing Home Energy Inspector, to enter patient data [place] Safe [place] if patient br1 involuntarily admitted or transferred for SI or HI ordered. 14:49 Confirm accurate psychiatric medication list and times of last dosage ordered. br1 14:49 Detain Pt Until Medically/PFS Cleared ordered. br1 14:50 Acetaminophen Level Ordered. EDMS 14:50 Basic Metabolic Profile Ordered. EDMS 14:50 Complete Blood Count Ordered. EDMS 14:50 Drug Eval Toxicology ED Only Ordered. EDMS 14:50 Ethyl Alcohol (ethanol) Ordered. EDMS 14:50 Liver Profile Ordered. EDMS 14:50 Salicylate Level Ordered. EDMS 14:50 Thyroid Stimulating Hormone Ordered. EDMS 15:11 Consult PFS/PSA/Drug Clerk complete. mk4 15:11 Consult PFS/PSA/Drug Clerk: Patient's case requires discussion with on-call mk4 Psychiatrist complete. 15:11 PSA/PFS to call Nursing Home Energy Inspector, to enter patient data on [place] Safe Act if patient mk4 involuntarily admitted or transferred for SI or HI complete. 16:12 Acetaminophen Level Reviewed. br1 16:12 Basic Metabolic Profile Reviewed. br1 16:12 Salicylate Level Reviewed. br1 16:12 Complete Blood Count Reviewed. br1 16:12 Ethyl Alcohol (ethanol) Reviewed. br1 16:12 Liver Profile Reviewed. br1 16:12 Thyroid Stimulating Hormone Reviewed. br1 16:12 Drug Eval Toxicology ED Only Reviewed. br1 16:13 Consult PFS/PSA/Socail Worker: Cleared medically for eval ordered. br1 16:15 Consult PFS/PSA/Socail Worker: Cleared medically for eval complete. ml4 16:27 REGULAR DIET PLASTIC WEISS+DIET ordered. EDMS 17:13 [facility] Payment Agreement was scanned into [employer] and attached to record. [id number] 17:13 Financial registration complete. dm19 06/15 03:56 [facility] Legal paperwork was scanned into [employer] and attached to record. cl 04:24 REGULAR DIET PLASTIC WEISS+DIET ordered. EDMS 11:07 REGULAR DIET PLASTIC WEISS+DIET ordered. EDMS 06/16 08:17 T-Sheet-- Draft Copy was scanned into [employer] and attached to record. gb Signatures: Dispatcher [employer] EDMS Eric Albright, PSA PSA cl Rochelle Gallardo, Reg Reg gb Chris Benitez RN RN mlb1 Juliane Oarntes, PSA PSA ml4 Shad Valenzuela MD MD br1 Nate Kimble DO DO cs11 Samara Marquez RN RN mk4 Ariane Marion dm19 The chart was reviewed and I authenticate all verbal orders and agree with the evaluation and treatment provided.Attachments: 06/14 17:13 [facility] Payment Agreement [email or web address] 06/16 08:17 T-Sheet-- Draft Copy gb Chart Complete MTDD
--- NOTE | 2016-06-17 12:21 | EDDOCDS ---
Nurse's Notes [facility] Name: Benjamin Denson Age: 20 yrs Sex: Male : 1995 Arrival Date: 06/14/2016 Time: 14:41 Bed OBSERVATION Private MD: NO PRIMARY PHYSICIAN, . Diagnosis: Major depressive disorder, recurrent;Suicidal ideations Presentation: 06/14 14:44 Presenting complaint: Patient states: Depression with suicidal thoughts. Mental Health mlb1 Triage Level: Level 2: The patient displays active suicidal ideations. Adult Sepsis Screening: The patient does not have new or worsening altered mentation. Patient's respiratory rate is less than 22. Systolic blood pressure is greater than 100. Patient has a qSOFA score of 0- Negative Sepsis Screen. Mental Health Triage Level: Level 2: The patient displays active suicidal ideations. Suicide/Homicide risk assessment- The patient admits to and/or has been reported to be having suicidal ideations. The patient reports that he/she has not been admitted to an inpatient mental health facility in the last 30 days. The patient reports that he/she has a recent or current history of substance abuse. The patient reports that he/she has a prior history of suicide attempt and/or organized plan. The patient reports that he/she has not experienced a significant life altering event in the last 30 days. The patient reports that he/she lacks adequate social support. The patient reports he/she has no significant chronic medical condition(s). Status: Patient is not a real estate services administrator or dependent. Transition of care: patient was not received from another setting of care. Red Flag criteria, patient assessed and taken directly to a bed. 14:44 Acuity: TEDDY Level 3 mlb1 14:44 Method Of Arrival: Walkin/Carried/Asstd mlb1 Triage Assessment: 14:45 General: Appears in no apparent distress, Behavior is cooperative, flat, quiet. Pain: mlb1 Denies pain. Pt Declines HIV testing. Historical: - Allergies: no known allergies; - Home Meds: 1. none - PMHx: Anxiety; Bipolar disorder; Depression; MPD; - PSHx: Adenoidectomy; - Social history: Smoking status: Patient uses tobacco products, heavy tobacco smoker. No barriers to communication noted, The patient speaks fluent Slovenian, Speaks appropriately for age. - Family history: Not pertinent. - : The pt / caregiver states he / she is not on anticoagulants. Home medication list is obtained from the patient. - Exposure Risk Screening:: None identified. Screenin:13 Screening information is obtained from the patient. Fall risk: No risks identified. mk4 Assistance ADL's: requires no assistance with activities of daily living. Abuse/DV Screen: The patient / caregiver reports he/she is: not in a situation that causes fear, pain or injury. Nutritional screening: No deficits noted. Advance Directives: Currently, there is no health care proxy. There is no active DNR order. There is no living will. There is no Power of Panel Machine Operator. Advance directive information has not previously been placed in an [facility] medical record. Further advance directive information is declined. home support is adequate. Assessment: 15:13 General: Appears in no apparent distress, comfortable, Behavior is flat, quiet. Pain: mk4 Denies pain. Neurological: Level of Consciousness is awake, alert. Respiratory: Airway is patent Respiratory effort is even, unlabored, Respiratory pattern is regular. Derm: Skin is intact, is healthy with good turgor, Skin is pink, warm & dry. 16:20 General: Appears in no apparent distress, comfortable. mk4 17:15 Reassessment: Patient appears in no apparent distress at this time. General: Appears in mk4 no apparent distress. Neurological: Level of Consciousness is awake, alert. 18:17 Reassessment: Patient appears in no apparent distress at this time. Patient denies pain mk4 at this time. General: Appears in no apparent distress, comfortable, Behavior is cooperative, flat, quiet, dinner tray given . 19:12 General: Appears in no apparent distress, comfortable, Behavior is appropriate for age, slm cooperative, quiet. General: pt resting on stretcher watching a movie security observing . Respiratory: Airway is patent Respiratory effort is even, unlabored. 20:16 General: Appears in no apparent distress, comfortable, Behavior is appropriate for age, slm cooperative. General: pt resting on stretcher watching a movie denies needs security observing . Respiratory: Airway is patent Respiratory effort is even, unlabored, Respiratory pattern is regular. Derm: Skin is pink, warm & dry. 21:12 General: Appears in no apparent distress, comfortable, Behavior is cooperative. slm General: resting on stretcher security observing . Respiratory: Airway is patent Respiratory pattern is regular. 22:20 General: Appears in no apparent distress, comfortable, to be sleeping. Behavior is slm quiet. General: resting on stretcher security observing . Respiratory: Airway is patent Respiratory effort is even, unlabored. Derm: Skin is pink, warm & dry. 23:01 General: Appears in no apparent distress, comfortable, to be sleeping. Behavior is slm quiet. General: security observing safety maintained . Respiratory: Airway is patent Respiratory effort is even, unlabored. Derm: Skin is pink, warm & dry. 06/15 00:10 General: Appears in no apparent distress, comfortable, to be sleeping. Behavior is slm quiet. General: security observing . Respiratory: Airway is patent Respiratory effort is even, unlabored. Derm: Skin is pink, warm & dry. 00:55 Reassessment: Patient appears in no apparent distress at this time. General: Appears in jp6 no apparent distress, comfortable. Respiratory: Airway is patent Respiratory effort is even, unlabored, Respiratory pattern is regular, symmetrical. :. Derm: Skin is pink, warm & dry. 01:34 General: Appears in no apparent distress, comfortable, Behavior is cooperative, quiet. slm General: pt resting on stretcher appears asleep security observing . Respiratory: No deficits noted. 02:16 General: Appears in no apparent distress, comfortable, to be sleeping. Behavior is slm quiet. General: security observing . Respiratory: Airway is patent Respiratory effort is even, unlabored, Respiratory pattern is regular. 02:57 General: Appears in no apparent distress, Pt asleep at rounds, no apparent distress, sls1 security observing, will continue to monitor.. Respiratory: Airway is patent Respiratory effort is even, unlabored, Respiratory pattern is regular, symmetrical. 03:43 General: Appears in no apparent distress, comfortable, to be sleeping. Behavior is slm quiet. General: security observing . Respiratory: Airway is patent Respiratory effort is even, unlabored. Derm: Skin is pink, warm & dry. 04:30 General: Appears in no apparent distress, comfortable, Behavior is appropriate for age, slm cooperative. General: pt resting on stretcher denies needs security observing . Pain: Denies pain. Neurological: Level of Consciousness is awake, alert, obeys commands. Respiratory: Airway is patent Respiratory effort is even, unlabored. Derm: Skin is pink, warm & dry. 05:06 General: Appears in no apparent distress, comfortable, to be sleeping. Behavior is slm cooperative, quiet. General: pt resting on stretcher security observing . Respiratory: Airway is patent Respiratory effort is even, unlabored. Derm: Skin is pink, warm & dry. 06:14 General: Appears in no apparent distress, comfortable, to be sleeping. Behavior is slm cooperative, quiet. General: resting on stretcher asleep security observing . Respiratory: Airway is patent Respiratory effort is even, unlabored. 06:40 Reassessment: Patient appears in no apparent distress at this time. General: Appears in jp6 no apparent distress, comfortable. Respiratory: Airway is patent Respiratory effort is even, unlabored, Respiratory pattern is regular, symmetrical. Derm: Skin is intact, Skin is pink, warm & dry. 07:08 General: Appears in no apparent distress, comfortable, Behavior is cooperative, slm pleasant. General: pt eating breakfast security observing . Respiratory: Airway is patent Respiratory effort is even, unlabored. 08:43 General: Appears in no apparent distress, comfortable, Behavior is cooperative, Denies mk4 feeling ill. 09:26 General: Appears in no apparent distress, comfortable. mk4 10:19 General: Appears in no apparent distress, comfortable, Behavior is cooperative, mk4 awaiting transfer to [place], denies any needs. 10:47 General: Appears in no apparent distress, comfortable, Behavior is cooperative, mk4 awaiting transfer to [place] denies needs. 11:18 General: Appears in no apparent distress, pt cooperative transferred to [place]. mk4 Mental Health Eval: 06/14 17:44 Mental health consult is initiated at 16:30. Status: The patient is not a real estate services administrator or dependent. [facility] Behavioral Health: The patient is not an established patient of [facility] Behavioral Health. Referral Information: Evaluation referral is generated by the patient himself / herself. The patient was referred for evaluation because Pt presented to ED by himself, homeless, suicidal with a plan to jump off [address] bridge, "because it is the highest one," or "slice his wrist," has been depressed and suicidal since he left [facility] in January 2016 after pt OD on trazodone and Zoloft (120 pills total), non compliant with treatment and medication, "don't work, make me feel like I am losing my mind," per pt. pt reports stressors are being homeless, family, father awhile back. Pt also reports not sleeping well for over 2 weeks, decompensating, disheveled, helpless and hopeless about his situation. 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 Subjective: The patients chief complaint is Pt reports depressed and +Suicidal with plan to jump off bridge or slice wrist, non-compliant with medications or treatment, homeless, family issues, . Delusions are denied. Patient's mood is anxious, depressed, hopeless, Hallucinations are denied. Mental Health history: anxiety, Bipolar Disorder, depression, sleep disturbance, suicide attempt by Pt reports 2 times tried to hang self, micah louise, OD on a combination of trazodone and Zoloft, 120 total on Jan 26 2016 Mental Health Admissions: [facility] 12/26/15, because pt requested a different hospital due to employment Current Outpatient Mental Health Services: None. Current living environment is homeless. Patient presents to Emergency Department with the following symptoms within the past 2 weeks: agitation, anxiety, denial, depressed mood, drug abuse, excessive guilt, feelings of helplessness/hopelessness, non-compliance, poor concentration, poor impulse control, relational problem, sleep disturbance - insomnia, suicidal ideation with plan for cutting. jumping off a structure. Substance abuse: Patient uses marijuana. Mental status exam: Patients appearance is disheveled Patient's behavior is cooperative, Speech is normal. Affect is broad. Mood is depressed. dysphoric. Hallucinations are denied. Appetite is normal. Memory is fair. Energy level is tires easily. Content of thought is normal. Thought process is intact. Cognitive level is oriented to person, place, time and situation Patient's insight is poor. Judgement is poor. Rapport with interviewer is good. Suicidal Ideation present with a plan to kill self by cutting. jumping off a structure. Homicidal ideation is not present. Disposition: Medically cleared for disposition by Shad Valenzuela MD Psychiatric Consult is performed by phone with Dr Roosevelt Del Rio The patient is to be transferred to [facility] unit is full at this time and pt is requesting a transfer due to being a recently x employed from [facility]. [facility] Admission Criteria: The patient is experiencing suicidal ideation. The patient requires continuous observation and/or control to protect self, others or property. The patient's care requires a multi-modal treatment plan under close supervision and coordination due to the complexity and severity of the patient's symptoms. The patient requires administration and monitoring of psychoactive medications by skilled medical providers due to the side effects of the psychoactive medications or significant dosage adjustments. Legal Status: Patient's legal status will be [facility] admission: 37. [place] Safe Act: [place] Safe Act is applicable to this patient. The patient poses a risk to self or other and the Nursing Butt Trimmer has been notified. He/She will enter the patient's data. DSM-V Differential Diagnosis: Bipolar II Disorder (F31.81) Current or most recent episode depressed, severe. Insurance Pre-Certification: Not Required, Pt states he has no insurance at this time. Pt [place] [facility] [place] Narrative: chart faxed to [facility] for review.... cl 06/15 04:40 Family Notification: Notification to family of patient status is not currently needed cl or appropriate. Awaiting: arrival of EMS for transfer. Vital Signs: 06/14 14:43 BP 148 / 76; Pulse 89; Resp 18 S; Temp 96.4; Pulse Ox 99% on R/A; Weight 74.84 kg (R); dd6 19:26 BP 132 / 60; Pulse 71; Resp 16; Temp 97.7(TE); Pulse Ox 96% ; Pain 0/10; mas 06/15 05:00 BP 109 / 53; Pulse 64; Resp 16; Temp 98.6(TE); Pulse Ox 96% on R/A; Pain 0/10; slm 11:19 BP 140 / 79; Pulse 62; Resp 18; Temp 99.2(T); Pulse Ox 100% on R/A; mk4 Vitals: 06/14 14:43 Log In Time: June 14, 2016 at 14:41. dd6 14:44 RN notified that patient meets Red Flag criteria. dd6 ED Course: 14:42 Patient visited by Ulises Mari PCA. dd6 14:42 Patient moved to Waiting dd6 14:43 NO PRIMARY PHYSICIAN, . is Private Physician. dd6 14:44 Patient moved to Pre RCE dd6 14:45 Triage Initiated mlb1 14:46 Patient visited by Chris Benitez RN. mlb1 14:46 [facility] 14:49 Shad Valenzuela MD is Attending Physician. br1 14:57 Patient visited by Lito Jain. gr2 15:11 Patient visited by Shad Valenzuela MD. br1 15:11 Acetaminophen Level Sent. mk4 15:11 Basic Metabolic Profile Sent. mk4 15:11 Complete Blood Count Sent. mk4 15:11 Ethyl Alcohol (ethanol) Sent. mk4 15:11 Liver Profile Sent. mk4 15:11 Salicylate Level Sent. mk4 15:11 Thyroid Stimulating Hormone Sent. mk4 15:13 Patient visited by Lito Jain. gr2 15:13 The patient / caregiver is instructed regarding the plan of care and ED course. mk4 15:13 No IV's were initiated during this patient's visit. No procedures done that require mk4 assistance. 15:30 Patient visited by Lito Jain. gr2 15:45 Patient visited by Lito Jain. gr2 16:08 Patient visited by Wojciech Ewing PCA. jrd 16:19 Patient visited by Wojciech Ewing PCA. jrd 16:31 Patient visited by Wojciech Ewing PCA. jrd 16:43 Patient visited by Lito Jain. gr2 17:09 Patient visited by Lito Jain. gr2 17:13 [facility] [place] Agreement was scanned into [employer] and attached to record. dm19 17:25 Patient visited by Lito Jain. gr2 17:52 Patient visited by Wojciech Ewing PCA. jrd 18:01 Patient visited by Wojciech Ewing PCA. jrd 18:16 Patient visited by Lito Jain. gr2 18:31 Patient visited by Lito Jain. gr2 18:45 Patient visited by Jeremy Woo. mas 18:46 Patient moved to OBSERVATION br1 19:00 Patient visited by Jeremy Woo. mas 19:03 Abril So LPN is Primary Nurse. slm 19:13 Patient visited by Abril So LPN. slm 19:15 Patient visited by Jeremy Woo. mas 19:31 Patient visited by Jeremy Woo. mas 19:45 Patient visited by Jeremy Woo. mas 20:00 Patient visited by Jeremy Woo. mas 20:15 Patient visited by Jeremy Woo. mas 20:17 Patient visited by Abril So LPN. slm 20:30 Patient visited by Jeremy Woo. mas 20:45 Patient visited by Jeremy Woo. mas 21:00 Patient visited by Jeremy Woo. mas 21:13 Patient visited by Abril So LPN. slm 21:15 Patient visited by Jeremy Woo. mas 21:31 Patient visited by Jeremy Woo. mas 21:48 Patient visited by Jeremy Woo. mas 22:00 Patient visited by Jeremy Woo. mas 22:15 Patient visited by Jeremy Woo. mas 22:30 Patient visited by Jeremy Woo. mas 22:42 Patient visited by Abril So LPN. slm 22:45 Patient visited by Jeremy Woo. mas 23:01 Patient visited by Jeremy Woo. mas 23:02 Patient visited by Abril So LPN. slm 23:07 Attending Physician role handed off by Shad Valenzuela MD cs11 23:07 Nate Kimble DO is Attending Physician. cs11 23:15 Patient visited by Jeremy Woo. mas 23:30 Patient visited by Jeremy Woo. mas 06/15 00:05 Patient visited by Jeremy Woo. mas 00:26 Patient visited by Jeremy Woo. mas 00:26 Patient visited by Abril So LPN. slm 00:30 Patient visited by Jeremy Woo. mas 00:45 Patient visited by Jeremy Woo. mas 01:01 Patient visited by Jeremy Woo. mas 01:16 Patient visited by Jeremy Woo. mas 01:30 Patient visited by Jeremy Woo. mas 01:34 Patient visited by Abril So LPN. slm 01:36 Patient visited by Abril So LPN. slm 01:45 Patient visited by Jeremy Woo. mas 02:00 Patient visited by Jeremy Woo. mas 02:15 Patient visited by Jeremy Woo. mas 02:16 Patient visited by Abril So LPN. slm 02:30 Patient visited by Jeremy Woo. mas 02:45 Patient visited by Jeremy Woo. mas 02:58 Patient visited by Jillian Joel RN. sls1 03:00 Patient visited by Jeremy Woo. mas 03:15 Patient visited by Jeremy Woo. mas 03:44 Patient visited by Abril So LPN. slm 03:56 [facility] Legal paperwork was scanned into [employer] and attached to record. cl 04:04 Patient visited by Jeremy Woo. mas 04:15 Patient visited by Abril So LPN. slm 04:30 Patient visited by Abril So LPN. slm 04:44 Patient visited by Jeremy Woo. mas 05:00 Patient visited by Jeremy Woo. mas 05:00 Patient visited by Abril So LPN. slm 05:07 Patient visited by Abril So LPN. slm 05:15 Patient visited by Jeremy Woo. mas 05:39 Patient visited by Jeremy Woo. mas 05:45 Patient visited by Jeremy Woo. mas 06:00 Patient visited by Jeremy Woo. mas 06:15 Patient visited by Jeremy Woo. mas 06:15 Patient visited by Abril So LPN. slm 06:30 Patient visited by Jeremy Woo. mas 06:45 Patient visited by Jeremy Woo. mas 07:05 Patient visited by Jeremy Woo. mas 07:09 Patient visited by Abril So LPN. slm 07:09 Primary Nurse role handed off by Abril So LPN mcp 07:22 Patient visited by Arnulfo Perez Security Aide. pjf 07:36 Patient visited by Arnulfo Perez Security Aide. pjf 07:44 Patient visited by Arnulfo Perez Security Aide. pjf 08:06 Patient visited by Arnulfo Perez Security Aide. pjf 08:29 Patient visited by Arunlfo Perez Security Aide. pjf 08:41 Patient visited by Arnulfo Perez Security Aide. pjf 09:00 Psych Safety Check: Location: Psych Room. Visual Assessment: Cooperative. pjf 09:15 Patient visited by Arnulfo Perez Security Aide. pjf 09:39 Patient visited by Arnulfo Perez Security Aide. pjf 10:01 Patient visited by Arnulfo Perez Security Aide. pjf 10:22 Patient visited by Arnulfo Perez Security Aide. pjf 10:35 Patient visited by Arnulfo Perez Security Aide. pjf 10:54 Patient visited by Arnulfo Perez Security Aide. pjf 11:05 Patient visited by Arnulfo Perez Security Aide. pjf 11:17 Patient visited by Arnulfo Perez Security Aide. pjf 06/16 08:17 T-Sheet-- Draft Copy was scanned into [employer] and attached to record. gb Attachments: 06/15 03:56 [facility] Legal paperwork cl Order Results: Lab Order: Acetaminophen Level; SPEC'M 06/14/16 15:08 Test: ACETAMINOPHEN LEVEL; Value: < 2.0; Range: 10.0-30.0; Abnormal: Below low normal; Units: UG/ML; Status: F Lab Order: Basic Metabolic Profile; SPEC'M 06/14/16 15:08 Test: GLUCOSE, FASTING; Value: 96; Range: 70-105; Units: MG/DL; Status: F Test: BLOOD UREA NITROGEN; Value: 12; Range: 7-18; Units: MG/DL; Status: F Test: CREATININE FOR GFR; Value: 0.90; Range: 0.70-1.30; Units: MG/DL; Status: F Test: SODIUM LEVEL; Value: 142; Range: 136-145; Units: MEQ/L; Status: F Test: POTASSIUM SERUM; Value: 3.8; Range: 3.5-5.1; Units: MEQ/L; Status: F Test: CHLORIDE LEVEL; Value: 104; Range: 98-107; Units: MEQ/L; Status: F Test: CARBON DIOXIDE LEVEL; Value: 31; Range: 21-32; Units: MEQ/L; Status: F Test: ANION GAP; Value: 7; Range: 8-16; Abnormal: Below low normal; Units: MEQ/L; Status: F Test: CALCIUM LEVEL; Value: 8.6; Range: 8.5-10.1; Units: MG/DL; Status: F Lab Order: Complete Blood Count; SPEC'M 06/14/16 15:08 Test: WHITE BLOOD COUNT; Value: 7.2; Range: 4.0-10.0; Units: K/mm3; Status: F Test: RED BLOOD COUNT; Value: 4.99; Range: 4.30-6.10; Units: M/mm3; Status: F Test: HEMOGLOBIN; Value: 14.4; Range: 14.0-18.0; Units: g/dl; Status: F Test: HEMATOCRIT; Value: 43.5; Range: 42.0-52.0; Units: %; Status: F Test: MEAN CORPUSCULAR VOLUME; Value: 87.2; Range: 80.0-96.0; Units: fl; Status: F Test: MEAN CORPUSCULAR HEMOGLOBIN; Value: 28.8; Range: 27.0-33.0; Units: pg; Status: F Test: MEAN CORPUSCULAR HGB CONC; Value: 33.0; Range: 32.0-36.5; Units: g/dl; Status: F Test: RED CELL DISTRIBUTION WIDTH; Value: 12.8; Range: 11.5-14.5; Units: %; Status: F Test: PLATELET COUNT, AUTOMATED; Value: 293; Range: 150-450; Units: k/mm3; Status: F Lab Order: Drug Eval Toxicology ED Only; SPEC'M 06/14/16 15:02 Test: AMPHETAMINES LEVEL URINE; Value: NEGATIVE; Range: NEGATIVE; Status: F Test: BARBITURATES URINE; Value: NEGATIVE; Range: NEGATIVE; Status: F Test: BENZODIAZEPINES URINE; Value: NEGATIVE; Range: NEGATIVE; Status: F Test: CANNABINOIDS URINE; Value: POSITIVE; Range: NEGATIVE; Abnormal: Above high normal; Status: F Test: COCAINE METABOLITE URINE; Value: NEGATIVE; Range: NEGATIVE; Status: F Test: METHADONE URINE; Value: NEGATIVE; Range: NEGATIVE; Status: F Test: OPIATES URINE; Value: NEGATIVE; Range: NEGATIVE; Status: F Test: TRICYCLIC ANTIDEPRESS URINE; Value: NEGATIVE; Range: NEGATIVE; Status: F Test Note: ; FALSE POSITIVE RESULTS CAN BE CAUSED BY THE USE OF PANTOPRAZOLE (PROTONIX). Lab Order: Ethyl Alcohol (ethanol); SPEC'M 06/14/16 15:08 Test: ETHYL ALCOHOL (ETHANOL); Value: < 0.003; Range: 0.000-0.010; Units: %; Status: F Lab Order: Liver Profile; SPEC' 06/14/16 15:08 Test: AST/SGOT; Value: 32; Range: 15-37; Units: U/L; Status: F Test: ALT/SGPT; Value: 43; Range: 12-78; Units: U/L; Status: F Test: ALKALINE PHOSPHATASE; Value: 115; Range: 45-117; Units: U/L; Status: F Test: BILIRUBIN,TOTAL; Value: 0.4; Range: 0.2-1.0; Units: MG/DL; Status: F Test: BILIRUBIN,DIRECT; Value: < 0.1; Range: 0.0-0.2; Units: MG/DL; Status: F Test: TOTAL PROTEIN; Value: 7.5; Range: 6.4-8.2; Units: GM/DL; Status: F Test: ALBUMIN; Value: 4.0; Range: 3.2-5.2; Units: GM/DL; Status: F Test: ALBUMIN/GLOBULIN RATIO; Value: 1.14; Range: 1.00-1.93; Status: F Lab Order: Salicylate Level; SPEC'M 06/14/16 15:08 Test: SALICYLATE LEVEL; Value: < 1.7; Range: 5.0-30.0; Abnormal: Below low normal; Units: MG/DL; Status: F Lab Order: Thyroid Stimulating Hormone; SPEC'M 06/14/16 15:08 Test: THYROID STIMULATING HORMONE; Value: 2.600; Range: 0.463-3.98; Units: uIU/ML; Status: F Outcome: 06/15 02:17 No special radiology studies were completed. Property removed, inventory done, secured slm in belongings bag- placed in locked locker. 04:15 ER care complete, transfer ordered by Provider. cs11 10:47 Discharge Assessment: Patient awake, alert and oriented x 3. No cognitive and/or mk4 functional deficits noted. Patient verbalized understanding of disposition instructions. Patient awake and alert. patient administered narcotics - no. The following High Risk Discharge criteria are identified: None. [facility]. Condition: stable. 11:17 Transferred by EMS ground report to accompanying personnel john cespedes and freedom gruber . mk4 11:19 Patient left the ED. mk4 Signatures: Cami Hernandez, RN RN Eric Adams, PSA PSA cl Jeremy Sinha, PSA PSA cs BarRochelle ball, Reg Reg gb Ana, Arnulfo, Security Aide Chris Gavin RN RN mlb1 Shad Valenzuela MD MD br1 Ulises Mari, INSTRUCTOR PILOT INSTRUCTOR PILOT dd6 Jeremy Woo Shannon, RN RN sls1 Nate Kimble, DO cs11 Lito Jain gr2 Abril So,OWNER OWNER slm Samara Marquez RN RN mk4 Wojciech Ewing, INSTRUCTOR PILOT INSTRUCTOR PILOT Nita Trujillo,RN RN jp6 Ariane Marion dm19 Corrections: (The following items were deleted from the chart) 01:36 01:34 General: pt resting on stretcher watching a movie security observing . slm slm Chart Complete MTDD
== END 2016-06-15 11:19 ==
LOC: M ED 14:41
DX: F32.9 Major depressive disorder, single episode, unspecified (principal); R45.851 Suicidal ideations; F41.9 Anxiety disorder, unspecified; F17.210 Nicotine dependence, cigarettes, uncomplicated
CPT/HCPCS: 36415; 80048; 80076; 80306; 84443; 85027; 99285; G0480

== ENCOUNTER 2016-07-15 00:27 | Emergency (ER) | payer OTHER ==
--- NOTE | 2016-07-15 02:51 | EDDOCDS ---
Nurse's Notes [facility] Name: Benjamin Denson Age: 20 yrs Sex: Male : 1995 Arrival Date: 07/15/2016 Time: 00:27 Bed [facility] Private MD: Diagnosis: Problems related to social environment;Inadequate social skills, not elsewhere classified Presentation: 07/15 00:29 Presenting complaint: [facility] Deputy Peg stated that he was called mgs to the patients residence by the patients family. Upon arrival the officer was informed by the patients mother that the patient had taken a kitchen knife and threatened to kill himself. According to mother the patient has not been taking his medications and got into an argument with his brother today. Officer Peg stated that according to the patient he was upset because his mother was making comments about the patients father. Mental Health Triage Level: Level 2: The patient displays active suicidal ideations. Mental Health Triage Level: Level 2:. Suicide/Homicide risk assessment- the patient denies having any suicidal and/or homicidal ideations and does not present with any other emotional, behavioral or mental health complaints. Status: Patient is not a adoption services manager or dependent. Transition of care: patient was not received from another setting of care. 00:29 Acuity: TEDDY Level 3 mgs 00:29 Method Of Arrival: Police Car mgs 00:29 Adult Sepsis Screening: The patient does not have new or worsening altered mentation. mgs Patient's respiratory rate is less than 22. Systolic blood pressure is greater than 100. Patient has a qSOFA score of 0- Negative Sepsis Screen. Triage Assessment: 00:29 General: Appears in no apparent distress, Behavior is cooperative. Pain: Denies pain. mgs Pt Declines HIV testing. The patient is triaged at the bedside. See Assessment in Nurses Notes section of ED record. Neurological: Level of Consciousness is awake, alert, Oriented to person, place, time. Cardiovascular: Capillary refill < 3 seconds Heart tones S1 S2 present Pulses are 2+ in right radial artery and left radial artery. Respiratory: Airway is patent Respiratory effort is even, unlabored, Respiratory pattern is regular, symmetrical, Breath sounds are clear bilaterally. Derm: Skin is pink, warm & dry. 00:39 General: patient states that he does not take his prescribed medications and that he mgs does not remember what they all are. Historical: - Allergies: no known allergies; - Home Meds: 1. trazodone 50 mg Oral tab 1 tab daily - PMHx: Anxiety; Bipolar disorder; Depression; MPD; - PSHx: none; - Social history: Smoking status: Patient uses tobacco products, heavy tobacco smoker. No barriers to communication noted, The patient speaks fluent Malay. - Family history: Not pertinent. - : The pt / caregiver states he / she is not on anticoagulants. Home medication list is obtained from the patient. - Exposure Risk Screening:: None identified. Screenin:40 Screening information is obtained from the patient. Fall risk: No risks identified. mgs Assistance ADL's: requires no assistance with activities of daily living. Abuse/DV Screen: The patient / caregiver reports he/she is: not in a situation that causes fear, pain or injury. Nutritional screening: No deficits noted. Advance Directives: Currently, there is no health care proxy. There is no active DNR order. home support is inadequate. Assessment: 00:40 General: Please see triage assessment. mgs 01:12 General: Appears in no apparent distress. Neurological: Level of Consciousness is ko2 awake, alert. Respiratory: Airway is patent Respiratory effort is even, unlabored, Respiratory pattern is regular, symmetrical. Derm: Skin is normal. 01:48 General: Appears in no apparent distress, comfortable, Behavior is appropriate for age, rw1 cooperative. Pain: Denies pain. Neurological: Level of Consciousness is awake, alert, obeys commands, Oriented to person, place, time. Respiratory: Airway is patent Respiratory effort is even, unlabored. Derm: Skin is pink, warm & dry. normal. 02:47 Reassessment: Patient appears in no apparent distress at this time. Patient denies pain rw1 at this time. Patient states feeling better. Patient states symptoms have improved. Mental Health Eval: 01:05 Status: The patient is not a adoption services manager or dependent. [facility]: The patient is not an established patient of [facility] Behavior[facility]. Referral Information: Evaluation referral is generated by a police agency: [employer] Officer Peg toth# [id number]. The patient was referred for evaluation because PT had threatened to kill himself. Subjective: The patients chief complaint is Per PT he was at his mother's and was in the kitchen cutting up food and mother was making comments about his father that he did not like and they argued. PT admits that he told her he would harm himself while he was holding the knife but denies stating he would be in a puddle of blood like it was reported. PT admits he was very angry but denies being suicidal "I always tell you guys when I'm suicidal and this time I am not. My mother made me mad so I said it and it's stupid" PT was a PT at [facility] 06/15-06/21 and has been staying with his mother, step mother and three siblings. PT cancelled his 5 day appointment when he was discharged for [place] as he did not have a ride and did not realize that he could utilize Medicaid transport and now he is about to run out of [employer]. Per PT's mother they have been arguing all day because she would not give him a cigarette "I am not supporting his habits" Mother states that PT was making self harming statements off and on all day but he would leave and go to his brother's across the street so she didn't pay attention to him as it was behavioral and she called when he had the knife "His 18 year old brother shouldn't have to tell him to put a knife down" Mother will not allow PT back in her home stating she does not want anything to happen to him but she will not tolerate his behavior when she has minor children in the home. While I was talking to mother PT was talking to step mother and she informed him he cannot come back. PT continues to deny SI/HI or hallucinations and understands he will be utilizing [facility] assistance for housing. Per Noelle fitness consultantcall center assistant at [facility] they will provide PT with a hotel room until Sunday morning and he will need to present to their office after 9 am. Per mother's phone call she will bring PT his wallet and what he has at her house to wherever he is. . Delusions are denied. Patient's mood is appropriate. Hallucinations are denied. Mental Health history: anxiety, Bipolar Disorder, depression, suicide attempt by 2x by hanging and 1x by OD. 02:12 Mental Health history: Mental Health Admissions: 11/2015 [facility]. 12/2015 [facility]2016 [facility] Current Outpatient Mental Health Services: None. Current living environment is homeless. Patient presents to Emergency Department with the following symptoms within the past 2 weeks: agitation, depressed mood, labile mood, non-compliance, poor impulse control, relational problem, suicidal ideation with no plan. Substance abuse: Patient uses marijuana whenever possible. Wants to explore Medical Marijuana Patient uses tobacco 2 packs Frequency daily. Mental status exam: Patients appearance is appropriate, Patient's behavior is cooperative, Speech is normal. Affect is appropriate. Mood is appropriate. Hallucinations are denied. Appetite is normal. Memory is good. Energy level is normal. Content of thought is normal. Thought process is intact. Cognitive level is oriented to person, place, time and situation Patient's insight is fair. Judgement is fair. Rapport with interviewer is good. Suicidal Ideation is denied. Homicidal ideation is denied. Disposition: Medically cleared for disposition by Nate Kimble DO Psychiatric Consult is deferred per ED physician, Dr Kimble . The patient has a safe destination which is [place] The patient's discharge transportation plan is by cab. [facility] Admission Criteria: Not Applicable. Narrative: PT understands that he has to present to [facility] Sunday morning after 9am. Referral information for outpatient care has been provided. Vital Signs: 00:29 BP 151 / 81; Pulse 88; Resp 18; Temp 97.9(O); Pulse Ox 96% on R/A; mgs 02:47 BP 130 / 72; Pulse 75; Resp 18; Temp 97.6(O); Pulse Ox 98% on R/A; Pain 0/10; rw1 Vitals: 00:29 Log In time N/A- police car [place]. [facility] [place] Course: 00:28 Patient visited by Andreia Busby, Barrera. hs2 00:28 Patient moved to Waiting hs2 00:28 Patient moved [address] [facility] hs2 00:29 Arnoldo Cantrell,FELICITA is Primary Nurse. mgs 00:30 Nate Kimble DO is Attending Physician. cs11 00:30 Patient visited by Nate Kimble DO. cs11 00:35 Triage Initiated mgs 00:45 MHE Legal paperwork was scanned into [employer] and attached to record. jfb 00:48 Patient visited by Tim. Jen tr 00:59 Patient visited by Li, Tuan. tr 01:16 Patient visited by Tuan Li. tr 01:28 Patient visited by Tuan Li. tr 01:46 Patient visited by Rosalino Hand LPN. rw1 01:58 Patient visited by Tuan Li. tr 02:01 [facility] Payment Agreement was scanned into [employer] and attached to record. [facility] 02:12 Patient visited by Tuan Li. tr 02:28 Patient visited by Rosalino Hand LPN. rw1 02:45 PSA Outpatient Referrals was scanned into [employer] and attached to record. jfb 02:47 The patient / caregiver is instructed regarding the plan of care and ED course. rw1 02:47 No IV's were initiated during this patient's visit. No procedures done that require rw1 assistance. Attachments: 00:45 E Legal paperwork jfb Order Results: There are currently no results for this order. Outcome: 02:29 Discharge ordered by Provider. cs11 02:47 Discharge Assessment: Patient awake, alert and oriented x 3. No cognitive and/or rw1 functional deficits noted. Patient verbalized understanding of disposition instructions. patient administered narcotics - no. The following High Risk Discharge criteria are identified: None. Discharged to [facility] emergency housing. Condition: stable Condition: improved. Discharge instructions given to patient, Instructed on discharge instructions, follow up and referral plans. Demonstrated understanding of instructions, Pt was receptive of discharge instructions/ teaching. No special radiology studies were completed. Property sent home with patient. 02:49 Patient left the ED. rw1 Signatures: Tuan Li Robert, LPN LPN rw1 Inessa Alvarez, PSA PSA jfb Nate Kimble DO DO cs11 Justine Hilton,RN RN Amy Garcia [facility] Arnoldo Cantrell RN RN mgs Andreia Busby, Reg Reg hs2 Corrections: (The following items were deleted from the chart) 00:41 00:40 home support is adequate. mgs mgs MTDD
--- NOTE | 2016-07-15 02:51 | EDDOCDS ---
Physician Documentation [facility] Name: Benjamin Denson Age: 20 yrs Sex: Male : 1995 Arrival Date: 07/15/2016 Time: 00:27 Bed U2 Private MD: Disposition: 07/15/16 02:29 Discharged to Home/Self Care. Impression: Problems related to social environment, Inadequate social skills, not elsewhere classified. - Condition is Stable. - Medication Reconciliation, Local Pharmacy Hours form. - Follow up: Private Physician; When: Call to arrange an appointment; Reason: Recheck today's complaints. - Problem is an ongoing problem. - Symptoms are unchanged. Historical: - Allergies: no known allergies; - Home Meds: 1. trazodone 50 mg Oral tab 1 tab daily - PMHx: Anxiety; Bipolar disorder; Depression; MPD; - PSHx: none; - Social history: Smoking status: Patient uses tobacco products, heavy tobacco smoker. No barriers to communication noted, The patient speaks fluent Vietnamese. - Family history: Not pertinent. - : The pt / caregiver states he / she is not on anticoagulants. Home medication list is obtained from the patient. - Exposure Risk Screening:: None identified. Vital Signs: 07/15 00:29 BP 151 / 81; Pulse 88; Resp 18; Temp 97.9(O); Pulse Ox 96% on R/A; mgs 02:47 BP 130 / 72; Pulse 75; Resp 18; Temp 97.6(O); Pulse Ox 98% on R/A; Pain 0/10; rw1 MDM: 00:31 Consult PFS/PSA/Trucksmith ordered. cs11 00:31 Consult PFS/PSA/Trucksmith: Patient's case requires discussion with on-call cs11 Psychiatrist ordered. 00:31 PSA/PFS to call Nursing Lining Setter, to enter patient data on [place] Safe [place] if patient cs11 involuntarily admitted or transferred for SI or HI ordered. 00:31 Confirm accurate psychiatric medication list and times of last dosage ordered. cs11 00:31 Detain Pt Until Medically/PFS Cleared ordered. cs11 00:45 MHE Legal paperwork was scanned into [employer] and attached to record. b 01:43 Financial registration complete. [facility] 02:01 [facility] Payment Agreement was scanned into [employer] and attached to record. [facility] 02:25 Consult PFS/PSA/Trucksmith complete. jfb 02:25 Consult PFS/PSA/Trucksmith: Patient's case requires discussion with on-call jfb Psychiatrist complete. 02:25 PSA/PFS to call Nursing Lining Setter, to enter [place] data [place] if patient jfb involuntarily admitted or transferred for SI or HI complete. 02:45 PSA Outpatient Referrals was scanned into [employer] and attached to record. jfb Signatures: Dispatcher [employer] EDMS Rosalino Hand LPN [facility] rw1 Inessa Alvarez, PSA PSA jfb Nate Kimble, DO DO cs11 Amy Cifuentes [facility] Arnoldo Cantrell,RN RN mgs The chart was reviewed and I authenticate all verbal orders and agree with the evaluation and treatment provided.Corrections: (The following items were deleted from the chart) 02:16 00:32 ACETAMINOPHEN LEVEL+LAB ordered. EDMS EDMS 02:16 00:32 BASIC METABOLIC PROFILE+LAB ordered. EDMS EDMS 02:17 00:32 COMPLETE BLOOD COUNT+LAB ordered. EDMS EDMS 02:17 00:32 DRUG EVAL TOXICOLOGY ED ONLY+LAB ordered. EDMS EDMS 02:17 00:32 ETHYL ALCOHOL (ETHANOL)+LAB ordered. EDMS EDMS 02:17 00:32 LIVER PROFILE+LAB ordered. EDMS EDMS 02:17 00:32 SALICYLATE LEVEL+LAB ordered. EDMS EDMS 02:17 00:32 THYROID STIMULATING HORMONE+LAB ordered. EDMS EDMS Attachments: 02:01 [facility] Payment Agreement [facility] MTDD
--- NOTE | 2016-07-17 03:49 | EDDOCDS ---
Physician Documentation [facility] Name: Benjamin Denson Age: 20 yrs Sex: Male : 1995 Arrival Date: 07/15/2016 Time: 00:27 Bed U2 Private MD: Disposition: 07/15/16 02:29 Discharged to Home/Self Care. Impression: Problems related to social environment, Inadequate social skills, not elsewhere classified. - Condition is Stable. - Medication Reconciliation, Local Pharmacy Hours form. - Follow up: Private Physician; When: Call to arrange an appointment; Reason: Recheck today's complaints. - Problem is an ongoing problem. - Symptoms are unchanged. Historical: - Allergies: no known allergies; - Home Meds: 1. trazodone 50 mg Oral tab 1 tab daily - PMHx: Anxiety; Bipolar disorder; Depression; MPD; - PSHx: none; - Social history: Smoking status: Patient uses tobacco products, heavy tobacco smoker. No barriers to communication noted, The patient speaks fluent Nepali. - Family history: Not pertinent. - : The pt / caregiver states he / she is not on anticoagulants. Home medication list is obtained from the patient. - Exposure Risk Screening:: None identified. Vital Signs: 07/15 00:29 BP 151 / 81; Pulse 88; Resp 18; Temp 97.9(O); Pulse Ox 96% on R/A; mgs 02:47 BP 130 / 72; Pulse 75; Resp 18; Temp 97.6(O); Pulse Ox 98% on R/A; Pain 0/10; rw1 MDM: 00:31 Consult PFS/PSA/Media Planner ordered. cs11 00:31 Consult PFS/PSA/Media Planner: Patient's case requires discussion with on-call cs11 Psychiatrist ordered. 00:31 PSA/PFS to call Nursing Assembler [employer], to [place] data [place] if patient cs11 involuntarily admitted or transferred for SI or HI ordered. 00:31 Confirm accurate psychiatric medication list and times of last dosage ordered. cs11 00:31 Detain Pt Until Medically/PFS Cleared ordered. cs11 00:45 MHE Legal paperwork was scanned into [employer] and attached to record. b 01:43 Financial registration complete. [facility] 02:01 [facility] Payment Agreement was scanned into [employer] and attached to record. [facility] 02:25 Consult PFS/PSA/Media Planner complete. [facility] 02:25 Consult PFS/PSA/Media Planner: Patient's case requires discussion with on-call jfb Psychiatrist complete. 02:25 PSA/PFS to call Nursing As[employer]er [employer], to enter [place] data [place] if patient jfb involuntarily admitted or transferred for SI or HI complete. 02:45 PSA Outpatient Referrals was scanned into [employer] and attached to record. [facility] 15:53 T-Sheet-- Draft Copy was scanned into [employer] and attached to record. klr Signatures: Dispatcher [employer] EDMS Rosalino Hand,DEATH SURVEYS CODER DEATH SURVEYS CODER rw1 Inessa Alvarez, PSA PSA jfb Nate Kimble, DO cs11 Amy Cifuentes [facility] Arnoldo Cantrell,FELICITA RN Khushbu Estrada The chart was reviewed and I authenticate all verbal orders and agree with the evaluation and treatment provided.Corrections: (The following items were deleted from the chart) 02:16 00:32 ACETAMINOPHEN LEVEL+LAB ordered. EDMS EDMS 02:16 00:32 BASIC METABOLIC PROFILE+LAB ordered. EDMS EDMS 02:17 00:32 COMPLETE BLOOD COUNT+LAB ordered. EDMS EDMS 02:17 00:32 DRUG EVAL TOXICOLOGY ED ONLY+LAB ordered. EDMS EDMS 02:17 00:32 ETHYL ALCOHOL (ETHANOL)+LAB ordered. EDMS EDMS 02:17 00:32 LIVER PROFILE+LAB ordered. EDMS EDMS 02:17 00:32 SALICYLATE LEVEL+LAB ordered. EDMS EDMS 02:17 00:32 THYROID STIMULATING HORMONE+LAB ordered. EDMS EDMS Attachments: 02:01 [facility] Payment Agreement [facility] 15:53 T-Sheet-- Draft Copy klr Chart Complete MTDD
--- NOTE | 2016-07-17 03:49 | EDDOCDS ---
Nurse's Notes [facility] Name: Benjamin Denson Age: 20 yrs Sex: Male : 1995 Arrival Date: 07/15/2016 Time: 00:27 Bed [facility] Private MD: Diagnosis: Problems related to social environment;Inadequate social skills, not elsewhere classified Presentation: 07/15 00:29 Presenting complaint: [facility] Deputy Peg stated that he was called mgs to the patients residence by the patients family. Upon arrival the officer was informed by the patients mother that the patient had taken a kitchen knife and threatened to kill himself. According to mother the patient has not been taking his medications and got into an argument with his brother today. Officer Peg stated that according to the patient he was upset because his mother was making comments about the patients father. Mental Health Triage Level: Level 2: The patient displays active suicidal ideations. Mental Health Triage Level: Level 2:. Suicide/Homicide risk assessment- the patient denies having any suicidal and/or homicidal ideations and does not present with any other emotional, behavioral or mental health complaints. Status: Patient is not a director of social services or dependent. Transition of care: patient was not received from another setting of care. 00:29 Acuity: TEDDY Level 3 mgs 00:29 Method Of Arrival: Police Car mgs 00:29 Adult Sepsis Screening: The patient does not have new or worsening altered mentation. mgs Patient's respiratory rate is less than 22. Systolic blood pressure is greater than 100. Patient has a qSOFA score of 0- Negative Sepsis Screen. Triage Assessment: 00:29 General: Appears in no apparent distress, Behavior is cooperative. Pain: Denies pain. mgs Pt Declines HIV testing. The patient is triaged at the bedside. See Assessment in Nurses Notes section of ED record. Neurological: Level of Consciousness is awake, alert, Oriented to person, place, time. Cardiovascular: Capillary refill < 3 seconds Heart tones S1 S2 present Pulses are 2+ in right radial artery and left radial artery. Respiratory: Airway is patent Respiratory effort is even, unlabored, Respiratory pattern is regular, symmetrical, Breath sounds are clear bilaterally. Derm: Skin is pink, warm & dry. 00:39 General: patient states that he does not take his prescribed medications and that he mgs does not remember what they all are. Historical: - Allergies: no known allergies; - Home Meds: 1. trazodone 50 mg Oral tab 1 tab daily - PMHx: Anxiety; Bipolar disorder; Depression; MPD; - PSHx: none; - Social history: Smoking status: Patient uses tobacco products, heavy tobacco smoker. No barriers to communication noted, The patient speaks fluent Japanese. - Family history: Not pertinent. - : The pt / caregiver states he / she is not on anticoagulants. Home medication list is obtained from the patient. - Exposure Risk Screening:: None identified. Screenin:40 Screening information is obtained from the patient. Fall risk: No risks identified. mgs Assistance ADL's: requires no assistance with activities of daily living. Abuse/DV Screen: The patient / caregiver reports he/she is: not in a situation that causes fear, pain or injury. Nutritional screening: No deficits noted. Advance Directives: Currently, there is no health care proxy. There is no active DNR order. home support is inadequate. Assessment: 00:40 General: Please see triage assessment. mgs 01:12 General: Appears in no apparent distress. Neurological: Level of Consciousness is ko2 awake, alert. Respiratory: Airway is patent Respiratory effort is even, unlabored, Respiratory pattern is regular, symmetrical. Derm: Skin is normal. 01:48 General: Appears in no apparent distress, comfortable, Behavior is appropriate for age, rw1 cooperative. Pain: Denies pain. Neurological: Level of Consciousness is awake, alert, obeys commands, Oriented to person, place, time. Respiratory: Airway is patent Respiratory effort is even, unlabored. Derm: Skin is pink, warm & dry. normal. 02:47 Reassessment: Patient appears in no apparent distress at this time. Patient denies pain rw1 at this time. Patient states feeling better. Patient states symptoms have improved. Mental Health Eval: 01:05 Status: The patient is not a director of social services or dependent. [facility]: The patient is not an established patient of [facility] Behavioral Health. Referral Information: Evaluation referral is generated by a police agency: [employer] Officer Peg toth# [id number]. The patient was referred for evaluation because PT had threatened to kill himself. Subjective: The patients chief complaint is Per PT he was at his mother's and was in the kitchen cutting up food and mother was making comments about his father that he did not like and they argued. PT admits that he told her he would harm himself while he was holding the knife but denies stating he would be in a puddle of blood like it was reported. PT admits he was very angry but denies being suicidal "I always tell you guys when I'm suicidal and this time I am not. My mother made me mad so I said it and it's stupid" PT was a PT at [facility] 06/15-06/21 and has been staying with his mother, step mother and three siblings. PT cancelled his 5 day appointment when he was discharged for [place] as he did not have a ride and did not realize that he could utilize Medicaid transport and now he is about to run out of [employer]. Per PT's mother they have been arguing all day because she would not give him a cigarette "I am not supporting his habits" Mother states that PT was making self harming statements off and on all day but he would leave and go to his brother's across the street so she didn't pay attention to him as it was behavioral and she called when he had the knife "His 18 year old brother shouldn't have to tell him to put a knife down" Mother will not allow PT back in her home stating she does not want anything to happen to him but she will not tolerate his behavior when she has minor children in the home. While I was talking to mother PT was talking to step mother and she informed him he cannot come back. PT continues to deny SI/HI or hallucinations and understands he will be utilizing [facility] assistance for housing. Per Noelle construction project coordinatorcall center support representative at [facility] they will provide PT with a hotel room until Sunday morning and he will need to present to their office after 9 am. Per mother's phone call she will bring PT his wallet and what he has at her house to wherever he is. . Delusions are denied. Patient's mood is appropriate. Hallucinations are denied. Mental Health history: anxiety, Bipolar Disorder, depression, suicide attempt by 2x by hanging and 1x by OD. 02:12 Mental Health history: Mental Health Admissions: 11/2015 [facility]. 12/2015 [facility]2016 [facility] Current Outpatient Mental Health Services: None. Current living environment is homeless. Patient presents to Emergency Department with the following symptoms within the past 2 weeks: agitation, depressed mood, labile mood, non-compliance, poor impulse control, relational problem, suicidal ideation with no plan. Substance abuse: Patient uses marijuana whenever possible. Wants to explore Medical Marijuana Patient uses tobacco 2 packs Frequency daily. Mental status exam: Patients appearance is appropriate, Patient's behavior is cooperative, Speech is normal. Affect is appropriate. Mood is appropriate. Hallucinations are denied. Appetite is normal. Memory is good. Energy level is normal. Content of thought is normal. Thought process is intact. Cognitive level is oriented to person, place, time and situation Patient's insight is fair. Judgement is fair. Rapport with interviewer is good. Suicidal Ideation is denied. Homicidal ideation is denied. Disposition: Medically cleared for disposition by Nate Kimble DO Psychiatric Consult is deferred per ED physician, Dr Kimble . The patient has a safe destination which is [employer] The patient's discharge transportation plan is by cab. [facility] Admission Criteria: Not Applicable. Narrative: PT understands that he has to present to [facility] Sunday morning after 9am. Referral information for outpatient care has been provided. Vital Signs: 00:29 BP 151 / 81; Pulse 88; Resp 18; Temp 97.9(O); Pulse Ox 96% on R/A; mgs 02:47 BP 130 / 72; Pulse 75; Resp 18; Temp 97.6(O); Pulse Ox 98% on R/A; Pain 0/10; rw1 Vitals: 00:29 Log In time N/A- police car arrival. [facility] ED Course: 00:28 Patient visited by Andreia Busby, Barrera. hs2 00:28 Patient moved to Waiting hs2 00:28 Patient moved to [facility] hs2 00:29 Arnoldo Cantrell,FELICITA is Primary Nurse. mgs 00:30 Nate Kimble DO is Attending Physician. cs11 00:30 Patient visited by Nate Kimble DO. cs11 00:35 Triage Initiated mgs 00:45 [facility] Legal paperwork was scanned into [employer] and attached to record. jfb 00:48 Patient visited by Tim. Jen tr 00:59 Patient visited by Li, Tuan. tr 01:16 Patient visited by Tuan Li. tr 01:28 Patient visited by Tuan Li. tr 01:46 Patient visited by Rosalino Hand LPN. rw1 01:58 Patient visited by Tuan Li. tr 02:01 [facility] Payment Agreement was scanned into [employer] and attached to record. [facility] 02:12 Patient visited by Tuan Li. tr 02:28 Patient visited by Rosalino Hand LPN. rw1 02:45 PSA Outpatient Referrals was scanned into [employer] and attached to record. jfb 02:47 The patient / caregiver is instructed regarding the plan of care and ED course. rw1 02:47 No IV's were initiated during this patient's visit. No procedures done that require rw1 assistance. 15:53 T-Sheet-- Draft Copy was scanned into [employer] and attached to record. klr Attachments: 00:45 [facility] Legal paperwork jfb Order Results: There are currently no results for this order. Outcome: 02:29 Discharge ordered by Provider. cs11 02:47 Discharge Assessment: Patient awake, alert and oriented x 3. No cognitive and/or rw1 functional deficits noted. Patient verbalized understanding of disposition instructions. patient administered narcotics - no. The following High Risk Discharge criteria are identified: None. Discharged to [facility] emergency housing. Condition: stable Condition: improved. Discharge instructions given to patient, Instructed on discharge instructions, follow up and referral plans. Demonstrated understanding of instructions, Pt was receptive of discharge instructions/ teaching. No special radiology studies were completed. Property sent home with patient. 02:49 Patient left the ED. rw1 Signatures: Tuan Li tr Rosalino Hand LPN LPN rw1 Inessa Alvarez, PSA PSA jfb Nate Kimble DO DO cs11 Justine Hilton RN RN ko2 Hook, Sandra Arnoldo Kwong RN RN mgs Andreia Busby, Reg Reg hs2 Khushbu Braxton [employer]freedom Corrections: (The following items were deleted from the chart) 00:41 00:40 home support is adequate. mgs mgs Chart Complete MTDD
--- NOTE | 2016-07-17 03:49 | EDDOCDS ---
Physician Documentation [facility] Name: Benjamin Denson Age: 20 yrs Sex: Male : 1995 Arrival Date: 07/15/2016 Time: 00:27 Bed U2 Private MD: Disposition: 07/15/16 02:29 Discharged to Home/Self Care. Impression: Problems related to social environment, Inadequate social skills, not elsewhere classified. - Condition is Stable. - Medication Reconciliation, Local Pharmacy Hours form. - Follow up: Private Physician; When: Call to arrange an appointment; Reason: Recheck today's complaints. - Problem is an ongoing problem. - Symptoms are unchanged. Historical: - Allergies: no known allergies; - Home Meds: 1. trazodone 50 mg Oral tab 1 tab daily - PMHx: Anxiety; Bipolar disorder; Depression; MPD; - PSHx: none; - Social history: Smoking status: Patient uses tobacco products, heavy tobacco smoker. No barriers to communication noted, The patient speaks fluent Arabic. - Family history: Not pertinent. - : The pt / caregiver states he / she is not on anticoagulants. Home medication list is obtained from the patient. - Exposure Risk Screening:: None identified. Vital Signs: 07/15 00:29 BP 151 / 81; Pulse 88; Resp 18; Temp 97.9(O); Pulse Ox 96% on R/A; mgs 02:47 BP 130 / 72; Pulse 75; Resp 18; Temp 97.6(O); Pulse Ox 98% on R/A; Pain 0/10; rw1 MDM: 00:31 Consult PFS/PSA/Respite Worker ordered. cs11 00:31 Consult PFS/PSA/Respite Worker: Patient's case requires discussion with on-call cs11 Psychiatrist ordered. 00:31 PSA/PFS to call Nursing [employer], to enter patient data on [place] Safe Act if patient cs11 involuntarily admitted or transferred for SI or HI ordered. 00:31 Confirm accurate psychiatric medication list and times of last dosage ordered. cs11 00:31 Detain Pt Until Medically/PFS Cleared ordered. cs11 00:45 [facility] Legal paperwork was scanned into [employer] and attached to record. b 01:43 Financial registration complete. [facility] 02:01 [facility] Payment Agreement was scanned into [employer] and attached to record. [facility] 02:25 Consult PFS/PSA/Respite Worker complete. [facility] 02:25 Consult PFS/PSA/Respite Worker: Patient's case requires discussion with on-call jfb Psychiatrist complete. 02:25 PSA/PFS to call Nursing [employer], to enter patient data [place] Safe [place] if patient jfb involuntarily admitted or transferred for SI or HI complete. 02:45 PSA Outpatient Referrals was scanned into [employer] and attached to record. [facility] 15:53 T-Sheet-- Draft Copy was scanned into [employer] and attached to record. klr Signatures: Dispatcher [employer] EDMS Rosalino Hand,PANTOGRAPHER PANTOGRAPHER rw1 Inessa Alvarez, PSA PSA jfb Nate Kimble, DO cs11 Amy Cifuentes [facility] Arnoldo Cantrell,FELICITA RN Khushbu Estrada The chart was reviewed and I authenticate all verbal orders and agree with the evaluation and treatment provided.Corrections: (The following items were deleted from the chart) 02:16 00:32 ACETAMINOPHEN LEVEL+LAB ordered. EDMS EDMS 02:16 00:32 BASIC METABOLIC PROFILE+LAB ordered. EDMS EDMS 02:17 00:32 COMPLETE BLOOD COUNT+LAB ordered. EDMS EDMS 02:17 00:32 DRUG EVAL TOXICOLOGY ED ONLY+LAB ordered. EDMS EDMS 02:17 00:32 ETHYL ALCOHOL (ETHANOL)+LAB ordered. EDMS EDMS 02:17 00:32 LIVER PROFILE+LAB ordered. EDMS EDMS 02:17 00:32 SALICYLATE LEVEL+LAB ordered. EDMS EDMS 02:17 00:32 THYROID STIMULATING HORMONE+LAB ordered. EDMS EDMS Attachments: 02:01 [facility] Payment Agreement [facility] 15:53 T-Sheet-- Draft Copy klr Chart Complete MTDD
== END 2016-07-15 02:49 | disposition home or self-care (01) ==
LOC: M ED 00:27
DX: Z60.9 Problem related to social environment, unspecified (principal); F41.9 Anxiety disorder, unspecified; F31.9 Bipolar disorder, unspecified; F17.200 Nicotine dependence, unspecified, uncomplicated; Z79.899 Other long term (current) drug therapy

== ENCOUNTER 2016-09-13 21:18 | Emergency (ER) | payer OTHER ==
[~2016-09-13] VITALS: Ht 175.3 cm; Wt 90.7 kg
[2016-09-13 21:27] VITALS: BP 146/69
[2016-09-13] MEDS ORDERED: TRAZ50TA4 PO (21:29)
[2016-09-13] MEDS ORDERED: PRED20TA PO (22:18)
[2016-09-13] MEDS ORDERED: FLON1SPR (22:19)
[2016-09-13] MEDS ORDERED: ACETAMINOPHEN/CODEINE #3 TABLET (BULK) PO ONE (22:30)
[2016-09-13] MEDS ORDERED: predniSONE 20 MG TAB PO ONE (22:30)
== END 2016-09-13 22:28 | disposition home or self-care (01) ==
LOC: M ED 22:12
DX: R51 Headache (principal); J34.89 Other specified disorders of nose and nasal sinuses; J30.9 Allergic rhinitis, unspecified; F17.210 Nicotine dependence, cigarettes, uncomplicated; Z79.899 Other long term (current) drug therapy

== ENCOUNTER 2016-11-16 13:22 | Emergency (ER) | payer OTHER, SELFPAY ==
[~2016-11-16] VITALS: Ht 175.3 cm; Wt 86.2 kg
[~2016-11-16 13:22] MED LIST: FLON1SPR; PRED20TA PO; TRAZ50TA4 PO
[2016-11-16 13:23] VITALS: BP 147/78
[2016-11-16] MEDS ORDERED: predniSONE 20 MG TAB PO ONE (14:45)
[2016-11-16] MEDS ORDERED: AMOX875T PO (14:46)
[2016-11-16] MEDS ORDERED: MAGICMW SSP (14:46)
== END 2016-11-16 15:04 | disposition home or self-care (01) ==
LOC: M ED 14:23
DX: J02.0 Streptococcal pharyngitis (principal); F31.9 Bipolar disorder, unspecified; G47.9 Sleep disorder, unspecified; Z79.899 Other long term (current) drug therapy

== ENCOUNTER 2017-01-31 21:44 | Emergency (ER) | payer SELFPAY ==
[~2017-01-31] VITALS: Ht 175.3 cm; Wt 84.0 kg
[~2017-01-31 21:44] MED LIST changes: +AMOX875T PO; +MAGICMW SSP; +TRAZ50TA11 PO; -TRAZ50TA4 PO
[2017-01-31] MEDS ORDERED: CEPHALEXIN 500 MG CAP PO ONE (23:30)
[2017-01-31] MEDS ORDERED: predniSONE 20 MG TAB PO ONE (23:30)
[2017-01-31] MEDS ORDERED: PRED20TA PO (23:56)
[2017-01-31] MEDS ORDERED: KEFL500C17 PO (23:56)
[2017-02-01 00:02] VITALS: BP 135/72
== END 2017-02-01 00:05 | disposition home or self-care (01) ==
LOC: M ED 21:44
DX: L03.211 Cellulitis of face (principal); L23.7 Allergic contact dermatitis due to plants, except food; F31.9 Bipolar disorder, unspecified; G47.00 Insomnia, unspecified; F17.210 Nicotine dependence, cigarettes, uncomplicated; Z79.899 Other long term (current) drug therapy

== ENCOUNTER 2017-06-25 08:41 | Emergency (ER) | payer SELFPAY | END 2017-06-25 09:52 | disposition home or self-care (01) | LOC: M ED 08:41 | DX: G43.009 Migraine without aura, not intractable, without status migrainosus (principal); G89.29 Other chronic pain; F31.9 Bipolar disorder, unspecified; Z86.69 Personal history of other diseases of the nervous system and sense organs | CPT/HCPCS: 99282 ==

== ENCOUNTER 2017-11-11 10:11 | Emergency (ER) | payer SELFPAY ==
[2017-11-11] MEDS: NS 1,000 ML IV (11:10)
[2017-11-11 11:20] LABS: BASO % 0.6 % (0.0-1.0); EOS # 0.1 10^3/uL (0.0-0.50); EOS % 2.1 % (0.0-3.0); HEMATOCRIT 45.7 % (42.0-52.0); HEMOGLOBIN 15.4 g/dl (13.5-17.5); IMMATURE GRANULOCYTE % 0.8 % (0-3.0); LYMPH # 1.3 10^3/uL (1.5-6.5); LYMPH % 20.3 % (24.0-44.0); MEAN CORPUSCULAR HGB CONC 33.7 g/dl (32.0-36.5); MEAN CORPUSCULAR VOLUME 89.1 fl (80.0-96.0); MONO # 0.6 10^3/uL (0.0-0.8); MONO % 9.7 % (0.0-5.0); NEUTROPHILS # 4.4 10^3/uL (1.8-7.7); NEUTROPHILS % 66.5 % (36.0-66.0); PLATELET COUNT, AUTOMATED 267 10^3/uL (150-450); RED BLOOD COUNT 5.13 10^6/uL (4.30-6.10); RED CELL DISTRIBUTION WIDTH 12.1 % (11.5-14.5); WHITE BLOOD COUNT 6.6 10^3/uL (4.0-10.0)
[2017-11-11 12:21] LABS: ALBUMIN 3.7 GM/DL (3.2-5.2); ALBUMIN/GLOBULIN RATIO 1.06 (1.00-1.93); ALKALINE PHOSPHATASE 92 U/L (45-117); ALT/SGPT 60 U/L (12-78); ANION GAP 7 MEQ/L (8-16); AST/SGOT 25 U/L (7-37); BILIRUBIN,DIRECT 0.1 MG/DL (0.0-0.2); BILIRUBIN,TOTAL 0.4 MG/DL (0.2-1.0); BLOOD UREA NITROGEN 11 MG/DL (7-18); CALCIUM LEVEL 8.3 MG/DL (8.5-10.1); CARBON DIOXIDE LEVEL 26 MEQ/L (21-32); CHLORIDE LEVEL 110 MEQ/L (98-107); FREE T4 0.76 NG/DL (0.76-1.46); GLOMERULAR FILTRATION RATE > 60.0 (>60); GLUCOSE, FASTING 120 MG/DL (70-100); MAGNESIUM LEVEL 2.1 MG/DL (1.8-2.4); PHOSPHORUS LEVEL 3.3 MG/DL (2.5-4.9); SODIUM LEVEL 143 MEQ/L (136-145); THYROID STIMULATING HORMONE 0.708 uIU/ML (0.358-3.740); TOTAL PROTEIN 7.2 GM/DL (6.4-8.2)
== END 2017-11-11 12:50 | disposition home or self-care (01) ==
LOC: M ED 10:11
DX: R55 Syncope and collapse (principal); Z72.0 Tobacco use
CPT/HCPCS: 71046

== ENCOUNTER 2020-11-10 08:16 | Emergency (ER) | payer SELFPAY ==
[~2020-11-10] VITALS: Ht 177.8 cm; Wt 113.6 kg
[2020-11-10 08:16] VITALS: BP 140/87
[~2020-11-10 08:16] MED LIST changes: +AUGM875T28 PO; +IBUP80TA PO; +KEFL500C17 PO; +TRAZ-252 PO; -TRAZ50TA11 PO
--- NOTE | 2020-11-10 08:54 | REP ---
INDICATION: R ankle injury COMPARISON: None. TECHNIQUE: AP, lateral, bilateral oblique views. FINDINGS: Significant lateral swelling consistent with inversion injury without evidence for acute fracture. A corticated 1 cm bony density at the tip of the fibula likely represents os subfibularis rather than fracture fragment. Ankle mortise appears intact. IMPRESSION: Significant swelling. As above. No acute fracture or dislocation. <Electronically signed by Nino Rico > 11/10/20 [id number]
--- NOTE | 2020-11-10 09:23 | REP ---
INDICATION: mid tib/fib ttp, s/p annkle injury COMPARISON: None. TECHNIQUE: AP and lateral views of the right tibia/fibula. FINDINGS: Significant swelling over the lateral malleolus at the ankle. No acute fracture or dislocation. IMPRESSION: Lateral ankle swelling.. No acute fracture or dislocation. <Electronically signed by Nino Rico > 11/10/20 0931
--- NOTE | 2020-11-10 09:26 | REP ---
INDICATION: R 4/5 metatarsal ttp s/p ankle injury COMPARISON: None. TECHNIQUE: AP, lateral, bilateral oblique views right foot. FINDINGS: Lateral ankle swelling. No definite acute fracture or dislocation is appreciated. However, very subtle injury at the base of the 4th and 5th metatarsal bones cannot definitively be excluded. Correlation with physical examination is recommended and if necessary re-evaluation in 3-5 days should be considered. IMPRESSION: Lateral ankle swelling. No definite acute fracture. As above. <Electronically signed by Nino Rico > 11/10/20 [id number]
== END 2020-11-10 09:53 | disposition home or self-care (01) ==
LOC: M ED 08:16
DX: S93.401A Sprain of unspecified ligament of right ankle, initial encounter (principal); X50.9XXA Other and unspecified overexertion or strenuous movements or postures, initial encounter; Y92.009 Unspecified place in unspecified non-institutional (private) residence as the place of occurrence of the external cause; Y93.89 Activity, other specified; Y99.8 Other external cause status; F41.9 Anxiety disorder, unspecified; F31.9 Bipolar disorder, unspecified; F17.200 Nicotine dependence, unspecified, uncomplicated; Z82.49 Family history of ischemic heart disease and other diseases of the circulatory system; Z87.828 Personal history of other (healed) physical injury and trauma

== ENCOUNTER 2021-07-27 16:05 | Emergency (ER) | payer OTHER, SELFPAY ==
[~2021-07-27] VITALS: Ht 175.3 cm; Wt 109.0 kg
[2021-07-27] MEDS ORDERED: PANTOPRAZOLE 40MG VIAL (C9113 PER 1) IV ONE (17:10)
[2021-07-27] MEDS ORDERED: ONDANSETRON 4MG/2ML VIAL IV ONE (17:10)
[2021-07-27] MEDS ORDERED: NS 1,000 ML IV ONE (17:10)
[2021-07-27 17:51] LABS: BASO % 0.3 % (0.0-1.0); EOS # 0.1 10^3/uL (0.0-0.5); EOS % 0.9 % (0.0-3.0); HEMATOCRIT 47.8 % (42.0-52.0); HEMOGLOBIN 15.9 g/dl (13.5-17.5); LYMPH # 0.8 10^3/uL (1.5-5.0); LYMPH % 6.7 % (24.0-44.0); MEAN CORPUSCULAR HEMOGLOBIN 28.9 pg (27.0-33.0); MEAN CORPUSCULAR HGB CONC 33.3 g/dl (32.0-36.5); MEAN CORPUSCULAR VOLUME 86.9 fl (80.0-96.0); MONO # 0.9 10^3/uL (0.0-0.8); MONO % 7.9 % (2.0-8.0); NEUTROPHILS # 9.6 10^3/uL (1.5-8.5); NEUTROPHILS % 83.7 % (36.0-66.0); PLATELET COUNT, AUTOMATED 262 10^3/uL (150-450); WHITE BLOOD COUNT 11.5 10^3/uL (4.0-10.0)
[2021-07-27 18:17] LABS: ALBUMIN 3.9 GM/DL (3.2-5.2); BILIRUBIN,DIRECT 0.2 MG/DL (0.0-0.2); BILIRUBIN,TOTAL 0.6 MG/DL (0.2-1.0); TOTAL PROTEIN 7.5 GM/DL (6.4-8.2)
[2021-07-27] MEDS ORDERED: ISOVUE-370 76% 100ML VIAL As Ordered ONE (19:02)
[2021-07-27 20:08] VITALS: BP 122/81
[2021-07-27] MEDS ORDERED: ONDA4TAB6 PO (20:46)
[2021-07-27] MEDS ORDERED: OMEP-173 PO (20:47)
== END 2021-07-27 20:54 | disposition home or self-care (01) ==
LOC: EDBD 16:05 → M ED 16:05
DX: K52.9 Noninfective gastroenteritis and colitis, unspecified (principal); R10.9 Unspecified abdominal pain; K21.9 Gastro-esophageal reflux disease without esophagitis; E86.0 Dehydration; R11.2 Nausea with vomiting, unspecified; F31.9 Bipolar disorder, unspecified; Z86.16 Personal history of COVID-19; Z79.899 Other long term (current) drug therapy
CPT/HCPCS: 74177; 80047; 80076; 83690; 85025; 96361; 96374; 96375; 99284; C9113; J2405; Q9967

== ENCOUNTER 2022-03-04 10:41 | Emergency (ER) | payer OTHER ==
[~2022-03-04] VITALS: Ht 175.3 cm; Wt 117.3 kg
[~2022-03-04 10:41] MED LIST changes: +OMEP-173 PO; +ONDA4TAB6 PO
[2022-03-04 13:32] VITALS: BP 128/82
== END 2022-03-04 13:39 | disposition home or self-care (01) ==
LOC: M ED 10:41
DX: S86.112A Strain of other muscle(s) and tendon(s) of posterior muscle group at lower leg level, left leg, initial encounter (principal); X50.0XXA Overexertion from strenuous movement or load, initial encounter; Y92.009 Unspecified place in unspecified non-institutional (private) residence as the place of occurrence of the external cause; F17.200 Nicotine dependence, unspecified, uncomplicated

== ENCOUNTER 2022-04-04 19:20 | Emergency (ER) | payer OTHER ==
[~2022-04-04] VITALS: Ht 175.3 cm; Wt 115.4 kg
[2022-04-04 19:21] VITALS: BP 140/100
== END 2022-04-04 23:00 | disposition left against medical advice (07) ==
LOC: M ED 19:20
DX: Z53.21 Procedure and treatment not carried out due to patient leaving prior to being seen by health care provider (principal)

== ENCOUNTER 2022-04-14 09:20 | Emergency (ER) | payer OTHER ==
[~2022-04-14] VITALS: Ht 175.3 cm; Wt 113.6 kg
[2022-04-14 10:07] LABS: HEMATOCRIT 46.8 % (42.0-52.0); HEMOGLOBIN 15.8 g/dl (13.5-17.5); MEAN CORPUSCULAR HGB CONC 33.8 g/dl (32.0-36.5); PLATELET COUNT, AUTOMATED 350 10^3/uL (150-450); RED BLOOD COUNT 5.26 10^6/uL (4.30-6.10); WHITE BLOOD COUNT 6.3 10^3/uL (4.0-10.0)
[2022-04-14 10:40] LABS: RSV AMPLIFICATION NEGATIVE (NEGATIVE)
[2022-04-14 11:05] LABS: ACETAMINOPHEN LEVEL < 2.0 UG/ML (10.0-30.0); ALBUMIN 4.4 GM/DL (3.2-5.2); ALT/SGPT 76 U/L (12-78); BILIRUBIN,DIRECT 0.1 MG/DL (0.0-0.2); BILIRUBIN,TOTAL 0.3 MG/DL (0.2-1.0); BLOOD UREA NITROGEN 8 MG/DL (7-18); CALCIUM LEVEL 8.6 MG/DL (8.5-10.1); CARBON DIOXIDE LEVEL 23 MEQ/L (21-32); CHLORIDE LEVEL 111 MEQ/L (98-107); CREATININE FOR GFR 0.84 MG/DL (0.70-1.30); ETHYL ALCOHOL (ETHANOL) 0.328 % (0.000-0.010); GLOMERULAR FILTRATION RATE > 60.0 (>60); GLUCOSE, FASTING 113 MG/DL (70-100); POTASSIUM SERUM 3.9 MEQ/L (3.5-5.1); SALICYLATE LEVEL 2.8 MG/DL (5.0-30.0); SODIUM LEVEL 142 MEQ/L (136-145); THYROID STIMULATING HORMONE 0.658 uIU/ML (0.358-3.740); TOTAL PROTEIN 8.2 GM/DL (6.4-8.2)
[2022-04-14 11:10] VITALS: BP 145/72
[2022-04-14 12:08] LABS: AMPHETAMINES LEVEL URINE NEGATIVE (NEGATIVE); BARBITURATES URINE NEGATIVE (NEGATIVE); BENZODIAZEPINES URINE NEGATIVE (NEGATIVE); CANNABINOIDS URINE NEGATIVE (NEGATIVE); COCAINE METABOLITE URINE NEGATIVE (NEGATIVE); METHADONE URINE NEGATIVE (NEGATIVE); OPIATES URINE NEGATIVE (NEGATIVE); PHENCYCLIDINE URINE NEGATIVE (NEGATIVE)
== END 2022-04-14 12:05 | disposition left against medical advice (07) ==
LOC: M ED 09:20
DX: R56.9 Unspecified convulsions (principal); F10.129 Alcohol abuse with intoxication, unspecified; Z53.20 Procedure and treatment not carried out because of patient's decision for unspecified reasons; S09.90XA Unspecified injury of head, initial encounter; W19.XXXA Unspecified fall, initial encounter; Z86.73 Personal history of transient ischemic attack (TIA), and cerebral infarction without residual deficits; F17.200 Nicotine dependence, unspecified, uncomplicated; J34.1 Cyst and mucocele of nose and nasal sinus

== ENCOUNTER 2023-01-31 11:58 | Emergency (ER) | payer OTHER ==
[~2023-01-31] VITALS: Ht 175.3 cm; Wt 104.5 kg
[2023-01-31 16:53] VITALS: BP 122/74; TEMP 97.2; O2SAT 98
== END 2023-01-31 17:09 | disposition home or self-care (01) ==
LOC: M ED 11:58
DX: S93.401A Sprain of unspecified ligament of right ankle, initial encounter (principal); X50.0XXA Overexertion from strenuous movement or load, initial encounter; Y92.89 Other specified places as the place of occurrence of the external cause; Y93.89 Activity, other specified; Y99.0 Civilian activity done for income or pay; F31.9 Bipolar disorder, unspecified

== ENCOUNTER 2023-02-14 11:26 | Emergency (ER) | payer OTHER ==
[~2023-02-14] VITALS: Ht 175.3 cm; Wt 106.8 kg
[2023-02-14 14:29] LABS: BASO # 0.1 10^3/uL (0.0-0.2); BASO % 0.6 % (0.0-1.0); EOS # 0.2 10^3/uL (0.0-0.5); EOS % 1.7 % (0.0-3.0); HEMOGLOBIN 14.9 g/dl (13.5-17.5); LYMPH # 1.5 10^3/uL (1.5-5.0); MEAN CORPUSCULAR HGB CONC 33.9 g/dl (32.0-36.5); MEAN CORPUSCULAR VOLUME 88.7 fl (80.0-96.0); MONO # 1.4 10^3/uL (0.0-0.8); MONO % 11.9 % (2.0-8.0); NEUTROPHILS # 8.3 10^3/uL (1.5-8.5); NEUTROPHILS % 72.1 % (36.0-66.0); PLATELET COUNT, AUTOMATED 303 10^3/uL (150-450); RED BLOOD COUNT 4.96 10^6/uL (4.30-6.10); WHITE BLOOD COUNT 11.4 10^3/uL (4.0-10.0)
[2023-02-14 14:55] LABS: ERYTHROCYTE SEDIMENTATION RATE 70 mm/hr (0-15)
[2023-02-14 15:01] LABS: BLOOD UREA NITROGEN 12 MG/DL (9-23); CARBON DIOXIDE LEVEL 26 MMOL/L (20-31); CHLORIDE LEVEL 107 MMOL/L (98-107); CREATININE FOR GFR 0.83 MG/DL (0.70-1.30); GLOMERULAR FILTRATION RATE > 60.0 (>60); GLUCOSE, FASTING 92 MG/DL (60-100); POTASSIUM SERUM 4.1 MMOL/L (3.5-5.1); SODIUM LEVEL 140 MMOL/L (136-145)
[2023-02-14] MEDS ORDERED: dexAMETHasone 4 MG TAB PO ONE (15:50)
[2023-02-14] MEDS ORDERED: AUGMENTIN 875 MG TAB PO ONE (15:50)
[2023-02-14] MEDS ORDERED: AMOX875T2 PO (15:54)
[2023-02-14 16:06] VITALS: BP 137/87; TEMP 98.7; O2SAT 99
== END 2023-02-14 16:09 | disposition home or self-care (01) ==
LOC: M ED 11:26
DX: J02.9 Acute pharyngitis, unspecified (principal); F17.290 Nicotine dependence, other tobacco product, uncomplicated

== ENCOUNTER 2023-11-27 01:45 | Emergency (ER) | payer OTHER, SELFPAY ==
[~2023-11-27] VITALS: Ht 175.3 cm; Wt 101.6 kg
[~2023-11-27 01:45] MED LIST changes: +AMOX875T2 PO; +ONDA-282 PO; -ONDA4TAB6 PO
[2023-11-27] MEDS ORDERED: CEPH500C PO (04:24)
[2023-11-27] MEDS: CEPHALEXIN 500 MG CAP PO ONE (04:32)
[2023-11-27 04:34] VITALS: BP 124/84; TEMP 98.8; O2SAT 98
== END 2023-11-27 04:38 | disposition home or self-care (01) ==
LOC: M ED 01:45
DX: J02.0 Streptococcal pharyngitis (principal); F17.210 Nicotine dependence, cigarettes, uncomplicated; T63.301A Toxic effect of unspecified spider venom, accidental (unintentional), initial encounter; Z79.2 Long term (current) use of antibiotics

== ENCOUNTER 2024-01-17 05:07 | Emergency (ER) | payer OTHER, SELFPAY ==
[~2024-01-17] VITALS: Ht 175.3 cm; Wt 102.2 kg
[2024-01-17 05:07] VITALS: TEMP 96.8
[~2024-01-17 05:07] MED LIST changes: +CEPH500C PO
[2024-01-17] MEDS ORDERED: CYCL5TAB PO (06:20)
[2024-01-17] MEDS ORDERED: NAPR-837 PO (06:20)
[2024-01-17] MEDS: CYCLOBENZAPRINE 5MG TABLET PO ONE (06:36)
[2024-01-17] MEDS: NAPROXEN 250 MG TAB PO ONE (06:37)
[2024-01-17 06:41] VITALS: BP 128/68; O2SAT 100
== END 2024-01-17 06:42 | disposition home or self-care (01) ==
LOC: M ED 05:07
DX: S46.012A Strain of muscle(s) and tendon(s) of the rotator cuff of left shoulder, initial encounter (principal); Y92.9 Unspecified place or not applicable; Y93.9 Activity, unspecified; Y99.0 Civilian activity done for income or pay; F17.210 Nicotine dependence, cigarettes, uncomplicated; F12.10 Cannabis abuse, uncomplicated; F10.10 Alcohol abuse, uncomplicated; Z79.2 Long term (current) use of antibiotics; Z79.899 Other long term (current) drug therapy

== ENCOUNTER 2024-05-14 19:26 | Emergency (ER) | payer OTHER ==
[~2024-05-14] VITALS: Ht 175.3 cm; Wt 104.3 kg
[~2024-05-14 19:26] MED LIST changes: +CYCL5TAB4 PO; +NAPR-837 PO
[2024-05-14] MEDS: KETOROLAC 60MG 2ML VIAL IM ONE (21:01)
[2024-05-14 21:57] VITALS: BP 129/68; TEMP 96.7; O2SAT 96
== END 2024-05-14 22:01 | disposition home or self-care (01) ==
LOC: M ED 19:26
DX: S93.402A Sprain of unspecified ligament of left ankle, initial encounter (principal); Y92.9 Unspecified place or not applicable; Y93.9 Activity, unspecified; Y99.0 Civilian activity done for income or pay; F17.210 Nicotine dependence, cigarettes, uncomplicated; Z79.2 Long term (current) use of antibiotics; Z79.899 Other long term (current) drug therapy
CPT/HCPCS: 73610; 96372; 99284; J1885

== ENCOUNTER 2024-06-12 13:45 | Emergency (ER) | payer OTHER ==
[~2024-06-12] VITALS: Ht 175.3 cm; Wt 100.1 kg
[2024-06-12 16:23] LABS: BASO # 0.1 10^3/uL (0.0-0.2); BASO % 0.6 % (0.0-1.0); EOS # 0.2 10^3/uL (0.0-0.5); EOS % 2.5 % (0.0-3.0); HEMATOCRIT 44.6 % (42.0-52.0); HEMOGLOBIN 14.6 g/dl (13.5-17.5); LYMPH # 2.2 10^3/uL (1.5-5.0); LYMPH % 24.9 % (24.0-44.0); MEAN CORPUSCULAR HEMOGLOBIN 28.3 pg (27.0-33.0); MEAN CORPUSCULAR HGB CONC 32.7 g/dl (32.0-36.5); MEAN CORPUSCULAR VOLUME 86.4 fl (80.0-96.0); NEUTROPHILS # 5.4 10^3/uL (1.5-8.5); NEUTROPHILS % 60.4 % (36.0-66.0); PLATELET COUNT, AUTOMATED 328 10^3/uL (150-450); RED BLOOD COUNT 5.16 10^6/uL (4.30-6.10); WHITE BLOOD COUNT 8.9 10^3/uL (4.0-10.0)
[2024-06-12 16:29] LABS: ERYTHROCYTE SEDIMENTATION RATE 49 mm/hr (0-15)
[2024-06-12 16:38] LABS: INR 0.99; PARTIAL THROMBOPLASTIN TIME 30.7 SECONDS (24.8-34.2); PROTHROMBIN TIME 13.4 SECONDS (12.5-14.5)
[2024-06-12 16:54] LABS: C REACTIVE PROTEIN QUANTITATIV 2.02 MG/DL (<1.0)
[2024-06-12 16:55] LABS: ALBUMIN 3.6 G/DL (3.2-5.2); ALKALINE PHOSPHATASE 91 U/L (40-129); ALT/SGPT 27 U/L (7.0-40); AST/SGOT 18 U/L (<34); BILIRUBIN,DIRECT 0.2 MG/DL (<0.4); BILIRUBIN,TOTAL 0.4 MG/DL (0.3-1.2); BLOOD UREA NITROGEN 12 MG/DL (9-23); CALCIUM LEVEL 9.5 MG/DL (8.5-10.1); CARBON DIOXIDE LEVEL 26 MMOL/L (20-31); CHLORIDE LEVEL 105 MMOL/L (98-107); GLOMERULAR FILTRATION RATE > 60.0 (>60); GLUCOSE, FASTING 82 MG/DL (60-100); SODIUM LEVEL 141 MMOL/L (136-145); TOTAL PROTEIN 7.7 G/DL (5.7-8.2)
[2024-06-12 18:22] VITALS: BP 124/73; TEMP 97.9; O2SAT 95
== END 2024-06-12 19:44 | disposition left against medical advice (07) ==
LOC: M ED 13:45
DX: Z53.21 Procedure and treatment not carried out due to patient leaving prior to being seen by health care provider (principal)

== ENCOUNTER → 2024-07-10 | Outpatient (CLI) | payer OTHER | LOC: M SOG 15:20 | PROVIDERS: ATTEND Physician Assistant | DX: M25.562 Pain in left knee (principal); M25.462 Effusion, left knee ==

== ENCOUNTER → 2024-07-28 | Outpatient (CLI) | payer OTHER | LOC: M PLAIMG 11:03 | PROVIDERS: ATTEND Physician Assistant | DX: M25.462 Effusion, left knee (principal); S83.242A Other tear of medial meniscus, current injury, left knee, initial encounter; M71.22 Synovial cyst of popliteal space [Baker], left knee ==

== ENCOUNTER → 2024-08-04 | Outpatient (REF) | payer OTHER ==
[2024-08-04 19:06] LABS: CRYSTALS, BODY FLUID NONE SEEN (NONE SEEN); SOURCE, BODY FLUID CRYSTALS LFT KNEE
== END ==
LOC: M LAB REF 17:01
PROVIDERS: ATTEND Physician Assistant
DX: M25.462 Effusion, left knee (principal)